=== PATIENT | male | born 1960 | race Two or more races ===

== ENCOUNTER 2018-08-11 10:25 | Inpatient (IN) | payer OTHER ==
[2018-08-11 11:40] VITALS: BMI 26.2
--- NOTE | 2018-08-11 12:10 | HP ---
CIWA Score Nausea/Vomitin Muscle Tremors: 2 Anxiety: 2 Agitation: 2 Paroxysmal Sweats: 1-Minimal Palms Moist Orientation: 0-Oriented Tacttile Disturbances: 1-Very Mild Itch/Numbness Auditory Disturbances: 1-Very Mild Visual Disturbances: 0-None Headache: 2-Mild CIWA-Ar Total Score: 13 - Admission Criteria [facility]ASAS Guidelines: Admission for Medically Managed Detox: Requires at least one of the followin. CIWA greater than 12 2. Seizures within the past 24 hours 3. Delirium tremens within the past 24 hours 4. Hallucinations within the past 24 hours 5. Acute intervention needed for co occurring medical disorder 6. Acute intervention needed for co occurring psychiatric disorder 7. Severe withdrawal that cannot be handled at a lower level of care (continued vomiting, continued diarrhea, abnormal vital signs) requiring intravenous medication and/or fluids 8. Patient presents the following: CIWA greater than 12 Admission Criteria Met: Admission criteria met Admission ROS S - HPI Chief Complaint: i need help to stop drinking alcohol,heroin abused,mmtp 60 mgs/day Allergies/Adverse Reactions: Allergies Allergy/AdvReac Type Severity Reaction Status Date / Time No Known Allergies Allergy Verified 08/11/18 12:05 History of Present Illness: this 58 years old male with alcohol dependence,heroin abused,mmtp 60 mgs/day, last medicated today, syncope alcohol related,last 08/10/18 hypertension on enalapril 20 mgs po daily last 08/11/18 type 2 dm diet control nicotine dependence weight loss multiple admissions in detox,last [place] 02/15 longest period of sobriety 3 years seen in [facility] this morning Exam Limitations: No Limitations - Ebola screening Have you been sick,other than usual withdrawal symptoms: No - Review of Systems Constitutional: Loss of Appetite, Malaise, Night Sweats, Changes in sleep, Weakness, Unintentional Wgt. Loss EENT: reports: Nose Congestion Respiratory: reports: No Symptoms reported Cardiac: reports: No Symptoms Reported GI: reports: Diarrhea, Nausea, Poor Appetite, Abdominal cramping : reports: No Symptoms Reported Musculoskeletal: reports: Back Pain, Muscle Pain Integumentary: reports: Dryness Neuro: reports: Headache, Tremors Endocrine: reports: No Symptoms Reported Hematology: reports: No Symptoms Reported Psychiatric: reports: No Sypmtoms Reported, Judgement Intact, Mood/Affect Appropiate, Orientated x3 Patient History - Patient Medical History Hx Anemia: No Hx Asthma: No Hx Chronic Obstructive Pulmonary Disease (COPD): No Hx Cancer: No Hx Cardiac Disorders: No Hx Congestive Heart Failure: No Hx Hypertension: Yes (on enalapril 20 mgs po daily) Hx Hypercholesterolemia: No Hx Pacemaker: No HX Cerebrovascular Accident: No Hx Seizures: No Hx Dementia: No Hx Diabetes: No Hx Gastrointestinal Disorders: No Hx Liver Disease: Yes (hepatitis c) Hx Genitourinary Disorders: No Hx Sexually Transmitted Disorders: No Hx Renal Disease (ESRD): No Hx Thyroid Disease: No Hx Human Immunodeficiency Virus (HIV): No (last 02/15 negative) Hx Hepatitis C: Yes (follow up with pmd in [facility]) Hx Depression: No Hx Suicide Attempt: No Hx Bipolar Disorder: No Hx Schizophrenia: No Other Medical History: no suicidal,no homicidal - Patient Surgical History Past Surgical History: No - PPD History Previous Implant?: Yes Documented Results: Positive w/o proof Implanted On Prior [facility] Admission?: No PPD to be Administered?: No - Smoking Cessation Smoking history: Current every day smoker Have you smoked in the past 12 months: Yes Aproximately how many cigarettes per day: 20 Cigars Per Day: 0 Hx Chewing Tobacco Use: No Initiated information on smoking cessation: Yes 'Breaking Loose' booklet given: 08/11/18 - Substance & Tx. History Hx Alcohol Use: Yes Hx Substance Use: No Substance Use Type: Alcohol Hx Substance Use Treatment: Yes ([facility] 02/15) - Substances Abused Alcohol Route: Oral Frequency: Daily Amount used: 3pints of vodka/2 of 12 ozs of beer Age of first use: 16 Date of Last Use: 08/11/18 Family Disease History - Family Disease History Family History: Denies Admission Physical Exam [facility] - Vital Signs Vital Signs: Vital Signs - 24 hr 08/11/18 11:29 Temperature 97.6 F Pulse Rate 67 Respiratory 18 Rate Blood Pressure 155/96 - Physical General Appearance: Yes: Moderate Distress, Tremorous, Irritable, Sweating, Anxious HEENTM: Yes: SHAHRIAR Tm's normal Respiratory: Yes: Lungs Clear, Normal Breath Sounds, No Respiratory Distress Neck: Yes: Within Normal Limits, Supple, Trachea in good position Breast: Yes: Within Normal Limits Cardiology: Yes: Within Normal Limits, Regular Rhythm, Regular Rate, S1, S2 Abdominal: Yes: Within Normal Limits, Normal Bowel Sounds, Non Tender, Flat, Soft Genitourinary: Yes: Within Normal Limits Back: Yes: Muscle Spasm Musculoskeletal: Yes: full range of Motion, Back pain, Muscle Pain Extremities: Yes: Tremors Neurological: Yes: credit collections clerk II-XII NML intact, Fully Oriented, Alert, Motor Strength 5/5 Integumentary: Yes: Dry Lymphatic: Yes: Within Normal Limits - Diagnostic (1) Alcohol dependence with uncomplicated withdrawal Current Visit: Yes Status: Acute (2) Alcohol dependence with uncomplicated intoxication Current Visit: Yes Status: Acute (3) Syncope Current Visit: Yes Status: Acute (4) Essential hypertension Current Visit: Yes Status: Acute (5) Weight loss Current Visit: Yes Status: Acute (6) DM2 (diabetes mellitus, type 2) Current Visit: Yes Status: Acute (7) Nicotine dependence Current Visit: Yes Status: Acute (8) Hepatitis C Current Visit: Yes Status: Acute (9) Methadone maintenance therapy patient Current Visit: Yes Status: Acute (10) Positive PPD, treated Current Visit: Yes Status: Acute Cleared for Admission [facility] - Detox or Rehab [facility] Level of Care: Medically Managed Detox Regimen/Protocol: Librium [facility] Breath Alcohol Content Breath Alcohol Content: 0.129 Urine Drug Screen - Results Drug Screen Negative: No Urine Drug Screen Results: OPI-Opiates, BZO-Benzodiazepines, MTD-Methadone, FEN- Fentanyl
[2018-08-11] MEDS ORDERED: ACETAMINOPHEN 325 MG TABLET (FP) PO PRN (12:25)
[2018-08-11] MEDS ORDERED: MAGNESIUM HYDROX 2400MG/30ML ORAL SUSPENSION 30 ML CUP PO PRN (12:25)
[2018-08-11] MEDS ORDERED: MENTHOL/PHENOL 1 EACH UD MM PRN (12:25)
[2018-08-11] MEDS ORDERED: hydrOXYzine PAMOATE 50 MG CAPSULE (FP) PO PRN (12:25)
[2018-08-11] MEDS ORDERED: LOPERAMIDE HCL 2 MG CAPSULE PO PRN (12:25)
[2018-08-11] MEDS ORDERED: P-EPHED 60MG/TRIPROLIDI 2.5MG TABLET PO PRN (12:25)
[2018-08-11] MEDS ORDERED: MAGNESIUM CITRATE 300 ML BOTTLE PO PRN (12:25)
[2018-08-11] MEDS ORDERED: IBUPROFEN 400 MG TABLET (FP) PO PRN (12:25)
[2018-08-11] MEDS ORDERED: MAG HYDROX/AL HYDROX/SIMETH 30 ML UNIT-DOSE CUP PO PRN (12:25)
[2018-08-11] MEDS ORDERED: guaiFENesin/D-METHORPHAN HB 10 ML UNIT-DOSE CUPS PO PRN (12:25)
[2018-08-11] MEDS: chlordiazePOXIDE HCL 25 MG CAPSULE PO PRN ×2 (14:12→19:19)
[2018-08-11] MEDS: NICOTINE 21 MG/24 HOURS TOPICAL PATCH TD SCH (15:39)
[2018-08-11] MEDS: chlordiazePOXIDE HCL 25 MG CAPSULE PO SCH ×2 (17:10→22:34)
[2018-08-11 18:58] LABS: URINE APPEARANCE CLEAR; URINE BILIRUBIN NEGATIVE (<2.0 mg/dL); URINE COLOR YELLOW; URINE GLUCOSE (UA) 1+ (NEGATIVE); URINE KETONE NEGATIVE (NEGATIVE); URINE LEUK ESTERASE NEGATIVE (NEGATIVE); URINE NITRITE NEGATIVE (NEGATIVE); URINE PROTEIN NEGATIVE (NEGATIVE); URINE UROBILINOGEN 4.0 E.U/dl mg/dL (0.2-1.0)
[2018-08-11] MEDS: THIAMINE HCL 100 MG TABLET (FP) PO SCH (22:34)
[2018-08-11] MEDS: MELATONIN 5 MG TABLETS PO PRN (22:35)
[2018-08-12] MEDS: chlordiazePOXIDE HCL 25 MG CAPSULE PO SCH ×4 (06:02→22:08)
[2018-08-12] MEDS ORDERED: cloNIDine HCL 0.1 MG TABLET PO ONE (07:28)
--- NOTE | 2018-08-12 07:31 | PN ---
S Progress Note Note: Patient's blood pressure is B/P 180/88. Patient is asymptomatic Vital Signs Temperature 97.2 F L 08/12/18 06:21 Pulse Rate 44 L 08/12/18 06:21 Respiratory Rate 16 08/12/18 06:21 Blood Pressure 180/88 H 08/12/18 06:21 O2 Sat by Pulse Oximetry (%) Action: Clonidine 0.1mg tablet oral ordered
--- NOTE | 2018-08-12 09:22 | PN ---
[facility] Progress Note Note: Vistaril prn dose cancelled in view of its prolongation of QT intervals. Will treat pt's symptoms if any
[2018-08-12] MEDS ORDERED: METHADONE HCL 10 MG TABLET PO SCH (09:30)
[2018-08-12] MEDS ORDERED: METHADONE HCL 40 MG DISPERSABLE TABLET ONE (09:40)
[2018-08-12] MEDS ORDERED: METHADONE HCL 10 MG TABLET ONE (09:41)
[2018-08-12] MEDS: METHADONE 40 MG, METHADONE 20 MG PO SCH (10:16)
[2018-08-12] MEDS: PRENATAL VITAMINS W/ FOLIC ACID TABLET (FP) PO SCH (10:16)
[2018-08-12] MEDS: NICOTINE 21 MG/24 HOURS TOPICAL PATCH TD SCH (10:16)
[2018-08-12 10:22] LABS: HEMATOCRIT 39.5 % (35.4-49); HEMOGLOBIN 12.8 GM/dL (11.7-16.9); MCH 30.3 pg (25.7-33.7); MCHC 32.4 g/dl (32.0-35.9); MEAN CELL VOLUME 93.4 fl (80-96); MEAN PLT VOLUME 10.6 fl (7.5-11.1); PLATELET COUNT 126 K/MM3 (134-434); RBC 4.23 M/mm3 (4.00-5.60); RDW 14.8 % (11.9-15.9); WHITE BLOOD COUNT 3.5 K/mm3 (4.0-10.0)
[2018-08-12 10:40] LABS: ALBUMIN 3.6 g/dl (3.4-5.0); ALK PHOS 93 U/L (45-117); ANION GAP 7 MMOL/L (8-16); BILIRUBIN,TOTAL 0.8 mg/dL (0.2-1); BLOOD UREA NITROGEN 16 mg/dL (7-18); CALCIUM 8.8 mg/dL (8.5-10.1); CHLORIDE 100 mmol/L (98-107); CO2 31 mmol/L (21-32); CREATININE 0.9 mg/dL (0.55-1.3); GLUCOSE,RANDOM 106 mg/dL (74-106); POTASSIUM 4.1 mmol/L (3.5-5.1); SGOT/AST 100 U/L (15-37); SGPT/ALT 82 U/L (13-61); SODIUM 139 mmol/L (136-145)
--- NOTE | 2018-08-12 10:51 | EKG ---
Test Reason : Blood Pressure : / mmHG Vent. Rate : 063 BPM Atrial Rate : 063 BPM P-R Int : 156 ms QRS Dur : 094 ms QT Int : 480 ms P-R-T Axes : 077 056 054 degrees QTc Int : 491 ms SINUS RHYTHM WITH MARKED SINUS ARRHYTHMIA MINIMAL VOLTAGE CRITERIA FOR LVH, MAY BE NORMAL VARIANT PROLONGED QT ABNORMAL ECG NO PREVIOUS ECGS AVAILABLE Confirmed by DENNY HAHN MD ([id number]) on 08/12/2018 10:51:25 AM Referred By: Tania Nair Confirmed By:DENNY HAHN MD
--- NOTE | 2018-08-12 18:41 | PN ---
[facility] CIWA - CIWA Score Nausea/Vomitin Muscle Tremors: 3 Anxiety: 3 Agitation: 2 Paroxysmal Sweats: 3 Orientation: 0-Oriented Tacttile Disturbances: 0-None Auditory Disturbances: 0-None Visual Disturbances: 0-None Headache: 0-None Present CIWA-Ar Total Score: 13 S Progress Note (SOAP) Subjective: shakes diarrhea sweats Objective: 08/12/18 18:38 A & o x 3 Ambulating easily on unit in no distress Vital Signs Temperature 97.1 F L 08/12/18 18:09 Pulse Rate 66 08/12/18 18:09 Respiratory Rate 18 08/12/18 18:09 Blood Pressure 122/89 08/12/18 18:09 O2 Sat by Pulse Oximetry (%) Laboratory Last Values WBC 3.5 K/mm3 (4.0-10.0) L 08/12/18 07:00 RBC 4.23 M/mm3 (4.00-5.60) 08/12/18 07:00 Hgb 12.8 GM/dL (11.7-16.9) 08/12/18 07:00 Hct 39.5 % (35.4-49) 08/12/18 07:00 MCV 93.4 fl (80-96) 08/12/18 07:00 MCH 30.3 pg (25.7-33.7) 08/12/18 07:00 MCHC 32.4 g/dl (32.0-35.9) 08/12/18 07:00 RDW 14.8 % (11.9-15.9) 08/12/18 07:00 Plt Count 126 K/MM3 (134-434) L 08/12/18 07:00 MPV 10.6 fl (7.5-11.1) 08/12/18 07:00 Sodium 139 mmol/L (136-145) 08/12/18 07:00 Potassium 4.1 mmol/L (3.5-5.1) 08/12/18 07:00 Chloride 100 mmol/L (98-107) 08/12/18 07:00 Carbon Dioxide 31 mmol/L (21-32) 08/12/18 07:00 Anion Gap 7 MMOL/L (8-16) L 08/12/18 07:00 BUN 16 mg/dL (7-18) 08/12/18 07:00 Creatinine 0.9 mg/dL (0.55-1.3) 08/12/18 07:00 Creat Clearance w eGFR > 60 (>60) 08/12/18 07:00 POC Glucometer 115 UNITS (80-120) 08/12/18 06:01 Random Glucose 106 mg/dL (74-106) 08/12/18 07:00 Calcium 8.8 mg/dL (8.5-10.1) 08/12/18 07:00 Total Bilirubin 0.8 mg/dL (0.2-1) 08/12/18 07:00 AST 100 U/L (15-37) H 08/12/18 07:00 ALT 82 U/L (13-61) H 08/12/18 07:00 Alkaline Phosphatase 93 U/L (45-117) 08/12/18 07:00 Total Protein 8.0 g/dl (6.4-8.2) 08/12/18 07:00 Albumin 3.6 g/dl (3.4-5.0) 08/12/18 07:00 Urine Color Yellow 08/11/18 18:55 Urine Appearance Clear 08/11/18 18:55 Urine pH 7.0 (5.0-8.0) 08/11/18 18:55 Ur Specific [place] 1.016 (1.010-1.035) 08/11/18 18:55 Urine Protein Negative (NEGATIVE) 08/11/18 18:55 Urine Glucose (UA) 1+ (NEGATIVE) H 08/11/18 18:55 Urine Ketones Negative (NEGATIVE) 08/11/18 18:55 Urine Blood Negative (NEGATIVE) 08/11/18 18:55 Urine Nitrite Negative (NEGATIVE) 08/11/18 18:55 Urine Bilirubin Negative (<2.0 mg/dL) 08/11/18 18:55 Urine Urobilinogen 4.0 e.u/dl mg/dL (0.2-1.0) 08/11/18 18:55 Ur Leukocyte Esterase Negative (NEGATIVE) 08/11/18 18:55 RPR Titer Nonreactive (NONREACTIVE) 08/12/18 07:00 Labs noted, Plt count low Assessment: 08/12/18 18:40 withdrawal sxs thrombocytopenia Plan: continue detox Careful with shaving to avoid increased risk of bleeding
[2018-08-12] MEDS: THIAMINE HCL 100 MG TABLET (FP) PO SCH (22:08)
[2018-08-12] MEDS: MELATONIN 5 MG TABLETS PO PRN (22:08)
[2018-08-13] MEDS ORDERED: METHADONE HCL 40 MG DISPERSABLE TABLET ONE (04:47)
[2018-08-13] MEDS ORDERED: METHADONE HCL 10 MG TABLET ONE (04:48)
[2018-08-13] MEDS: METHADONE 40 MG, METHADONE 20 MG PO SCH (05:28)
[2018-08-13] MEDS: chlordiazePOXIDE HCL 25 MG CAPSULE PO SCH ×2 (05:30→10:37)
[2018-08-13] MEDS: NICOTINE 21 MG/24 HOURS TOPICAL PATCH TD SCH (10:37)
[2018-08-13] MEDS: PRENATAL VITAMINS W/ FOLIC ACID TABLET (FP) PO SCH (10:37)
--- NOTE | 2018-08-13 11:29 | PN ---
S CIWA - CIWA Score Nausea/Vomitin-No Nausea/No Vomiting Muscle Tremors: 3 Anxiety: 3 Agitation: 3 Paroxysmal Sweats: No Perspiration Orientation: 0-Oriented Tacttile Disturbances: 0-None Auditory Disturbances: 0-None Visual Disturbances: 0-None Headache: 0-None Present CIWA-Ar Total Score: 9 [facility] Progress Note (SOAP) Subjective: PATIENT C/O SHAKES, CHILLS, ANXIETY/RESTLESSNESS. Objective: 08/13/18 11:27 Vital Signs Temperature 96.9 F L 08/13/18 09:12 Pulse Rate 63 08/13/18 09:12 Respiratory Rate 18 08/13/18 09:12 Blood Pressure 125/77 08/13/18 09:12 O2 Sat by Pulse Oximetry (%) Laboratory Tests 08/11/18 08/12/18 08/12/18 18:55 06:01 07:00 WBC 3.5 L RBC 4.23 Hgb 12.8 Hct 39.5 MCV 93.4 MCH 30.3 MCHC 32.4 RDW 14.8 Plt Count 126 L MPV 10.6 Sodium Potassium Chloride Carbon Dioxide Anion Gap BUN Creatinine Creat Clearance w eGFR POC Glucometer 115 Random Glucose Calcium Total Bilirubin AST ALT Alkaline Phosphatase Total Protein Albumin Urine Color Yellow Urine Appearance Clear Urine pH 7.0 Ur Specific [place] 1.016 Urine Protein Negative Urine Glucose (UA) 1+ H Urine Ketones Negative Urine Blood Negative Urine Nitrite Negative Urine Bilirubin Negative Urine Urobilinogen 4.0 e.u/dl Ur Leukocyte Esterase Negative RPR Titer 08/12/18 08/12/18 08/13/18 07:00 07:00 05:29 WBC RBC Hgb Hct MCV MCH MCHC RDW Plt Count MPV Sodium 139 Potassium 4.1 Chloride 100 Carbon Dioxide 31 Anion Gap 7 L BUN 16 Creatinine 0.9 Creat Clearance w eGFR > 60 POC Glucometer 107 Random Glucose 106 Calcium 8.8 Total Bilirubin 0.8 AST 100 H ALT 82 H Alkaline Phosphatase 93 Total Protein 8.0 Albumin 3.6 Urine Color Urine Appearance Urine pH Ur Specific [place] Urine Protein Urine Glucose (UA) Urine Ketones Urine Blood Urine Nitrite Urine Bilirubin Urine Urobilinogen Ur Leukocyte Esterase RPR Titer Nonreactive PE: ALERT AND ORIENTED X 3 SKIN WARM AND DRY CAR S1S2 RESP CTA BL EXT +TREMORS, FULL ROM, AMB AD YUSUF Assessment: 08/13/18 11:28 WITHDRAWAL SX Plan: CONTINUE DETOX ENCOURAGE ORAL FLUIDS PSYCH CONSULT CONTINUE TO MONITOR
[2018-08-13] MEDS: chlordiazePOXIDE 5 MG CAPSULE PO SCH ×2 (17:23→22:10)
[2018-08-13] MEDS: MELATONIN 5 MG TABLETS PO PRN (22:10)
[2018-08-13] MEDS: THIAMINE HCL 100 MG TABLET (FP) PO SCH (22:10)
[2018-08-14] MEDS ORDERED: METHADONE HCL 40 MG DISPERSABLE TABLET ONE (04:58)
[2018-08-14] MEDS ORDERED: METHADONE HCL 10 MG TABLET ONE (04:59)
[2018-08-14] MEDS: METHADONE 40 MG, METHADONE 20 MG PO SCH (05:28)
[2018-08-14] MEDS: chlordiazePOXIDE 5 MG CAPSULE PO SCH ×2 (05:28→10:51)
[2018-08-14] MEDS: PRENATAL VITAMINS W/ FOLIC ACID TABLET (FP) PO SCH (10:50)
[2018-08-14] MEDS: NICOTINE 21 MG/24 HOURS TOPICAL PATCH TD SCH (10:51)
--- NOTE | 2018-08-14 11:24 | PN ---
[facility] Progress Note Note: PATIENT CONTINUES WITH DETOX REGIMEN. PATIENT STATES HE FEELS BETTER. C/O INTERRUPTED SLEEP. Vital Signs Temperature 97.0 F L 08/14/18 09:28 Pulse Rate 45 L 08/14/18 09:28 Respiratory Rate 16 08/14/18 09:28 Blood Pressure 140/79 08/14/18 09:28 O2 Sat by Pulse Oximetry (%) Laboratory Tests 08/11/18 08/12/18 08/12/18 18:55 06:01 07:00 WBC 3.5 L RBC 4.23 Hgb 12.8 Hct 39.5 MCV 93.4 MCH 30.3 MCHC 32.4 RDW 14.8 Plt Count 126 L MPV 10.6 Sodium Potassium Chloride Carbon Dioxide Anion Gap BUN Creatinine Creat Clearance w eGFR POC Glucometer 115 Random Glucose Calcium Total Bilirubin AST ALT Alkaline Phosphatase Total Protein Albumin Urine Color Yellow Urine Appearance Clear Urine pH 7.0 Ur Specific [place] 1.016 Urine Protein Negative Urine Glucose (UA) 1+ H Urine Ketones Negative Urine Blood Negative Urine Nitrite Negative Urine Bilirubin Negative Urine Urobilinogen 4.0 e.u/dl Ur Leukocyte Esterase Negative RPR Titer 08/12/18 08/12/18 08/13/18 07:00 07:00 05:29 WBC RBC Hgb Hct MCV MCH MCHC RDW Plt Count MPV Sodium 139 Potassium 4.1 Chloride 100 Carbon Dioxide 31 Anion Gap 7 L BUN 16 Creatinine 0.9 Creat Clearance w eGFR > 60 POC Glucometer 107 Random Glucose 106 Calcium 8.8 Total Bilirubin 0.8 AST 100 H ALT 82 H Alkaline Phosphatase 93 Total Protein 8.0 Albumin 3.6 Urine Color Urine Appearance Urine pH Ur Specific [place] Urine Protein Urine Glucose (UA) Urine Ketones Urine Blood Urine Nitrite Urine Bilirubin Urine Urobilinogen Ur Leukocyte Esterase RPR Titer Nonreactive 08/14/18 05:30 WBC RBC Hgb Hct MCV MCH MCHC RDW Plt Count MPV Sodium Potassium Chloride Carbon Dioxide Anion Gap BUN Creatinine Creat Clearance w eGFR POC Glucometer 152 Random Glucose Calcium Total Bilirubin AST ALT Alkaline Phosphatase Total Protein Albumin Urine Color Urine Appearance Urine pH Ur Specific [place] Urine Protein Urine Glucose (UA) Urine Ketones Urine Blood Urine Nitrite Urine Bilirubin Urine Urobilinogen Ur Leukocyte Esterase RPR Titer PE: ALERT AND ORIENTED X 3 SKIN WARM AND DRY CAR S1S2 RESP CTA BL EXT FULL ROM, NO TREMORS AMB AD YUSUF
--- NOTE | 2018-08-14 13:01 | CONSULT ---
[facility] Psychiatric Consult - Data Date of interview: 08/14/18 Admission source: [facility] Identifying data: First admission to [facility] for this 58 y/o [place] male seeking detoxification treatment on for alcohol and heroin dependence. Patient is single without dependents, domiciled, unemployed and supported on undisclosed means. Substance Abuse History: Confirmed by patient in this interview. Details in current [facility] report : Smoking history: Current every day smoker. Have you smoked in the past 12 months: Yes. Aproximately how many cigarettes per day: 20. Cigars Per Day: 0. Hx Chewing Tobacco Use: No. Initiated information on smoking cessation: Yes. 'Breaking Loose' booklet given: 08/11/18. - Substance & Tx. History. Hx Alcohol Use: Yes. Hx Substance Use: No. Substance Use Type : Alcohol. Hx Substance Use Treatment: Yes ([facility] 02/15). - Substances Abused. Alcohol. Route: Oral. Frequency: Daily. Amount used: 3pints of vodka/2 of 12 ozs of beer. Age of first use: 16. Date of Last Use: 08/11/18 Medical History: Hypertension, hepatitis C and diabetes mellitus. Psychiatric History: No reported history of psychiatric illness. Patient reports that he has been diagnosed with MDD and Anxiety Disorder. Used to be on aripriprazole (discontinued due to oversedation) during his incarceration. Mr Reynolds is currently on methadone maintenance (60 mg/day) at the [facility] program in [facility]. No history of suicide attempts. Physical/Sexual Abuse/Trauma History: Patient denies. Additional Comment: Urine Drug Screen Results: OPI-Opiates, BZO-Benzodiazepines , MTD-Methadone, FEN-Fentanyl. Noted. Mental Status Exam - Mental Status Exam Alert and Oriented to: Time, Place, Person Cognitive Function: Good Patient Appearance: Well Groomed Mood: Nervous, Withdrawn Affect: Appropriate, Normal Range Patient Behavior: Fatigued, Appropriate, Cooperative Speech Pattern: Clear, Appropriate Voice Loudness: Normal Thought Process: Intact, Goal Oriented Thought Disorder: Not Present Hallucinations: Denies Suicidal Ideation: Denies Homicidal Ideation: Denies Insight/Judgement: Poor Sleep: Well Appetite: Good Muscle strength/Tone: Normal Gait/Station: Normal Psychiatric Findings - Problem List (Brothers 1, 2,3) (1) Opioid dependence on agonist therapy Current Visit: Yes Status: Acute (2) Alcohol dependence with uncomplicated withdrawal Current Visit: Yes Status: Acute (3) Nicotine dependence Current Visit: Yes Status: Acute - Initial Treatment Plan Initial Treatment Plan: Psychoeducation. Sleep hygiene. Detoxification. AA/NA meetings. Psychotherapy (group + supportive). Motivational rounds. Observation.
[2018-08-14] MEDS: chlordiazePOXIDE HCL 10 MG CAPSULE PO SCH ×2 (17:26→22:05)
[2018-08-14] MEDS: THIAMINE HCL 100 MG TABLET (FP) PO SCH (22:04)
[2018-08-14] MEDS: MELATONIN 5 MG TABLETS PO PRN (22:05)
[2018-08-15] MEDS ORDERED: METHADONE HCL 40 MG DISPERSABLE TABLET ONE (04:56)
[2018-08-15] MEDS ORDERED: METHADONE HCL 10 MG TABLET ONE (04:56)
[2018-08-15] MEDS: chlordiazePOXIDE HCL 10 MG CAPSULE PO SCH (05:31)
[2018-08-15] MEDS: METHADONE 40 MG, METHADONE 20 MG PO SCH (05:31)
[2018-08-15 06:30] VITALS: BP 160/83; PULSE 50; TEMP 97.1
[2018-08-15] MEDS: PRENATAL VITAMINS W/ FOLIC ACID TABLET (FP) PO SCH (09:30)
[2018-08-15] MEDS: NICOTINE 21 MG/24 HOURS TOPICAL PATCH TD SCH (09:30)
--- NOTE | 2018-08-15 10:40 | DS ---
[facility] Detox Discharge Summary Admission Date: 08/11/18 Discharge Date: 08/15/18 - History Present History: Alcohol Dependence, MMTP - Physical Exam Results Vital Signs: Vital Signs Temperature 97.1 F L 08/15/18 06:29 Pulse Rate 50 L 08/15/18 06:29 Respiratory Rate 18 08/15/18 06:29 Blood Pressure 160/83 08/15/18 06:29 O2 Sat by Pulse Oximetry (%) Pertinent Admission Physical Exam Findings: PATIENT COMPLETED DETOX WITHOUT ADVERSE EVENT. PATIENT DISCHARGE CLINICALLY STABLE, DENIES SI/HI. PATIENT ALERT AND ORIENTED X 3, EXT FULL ROM, AMB AD YUSUF. PATIENT ENCOURAGED TO ATTEND GROUP MEETINGS TO PREVENT RELAPSE AND TO SEEK MEDICAL ATTENTION IF WITHDRAWAL SYMPTOMS OCCUR. D/C INSTRUCTIONS PROVIDED TO PATIENT BY STAFF. - Treatment Hospital Course: Detox Protocol Followed, Detoxed Safely, Responded well, Discharged Condition Good - Medication Discharge Medications: Ambulatory Orders NK [No Known Home Medication] 08/11/18 - Diagnosis (1) Alcohol dependence with uncomplicated withdrawal Status: Resolved - AMA Did Patient Leave Against Medical Advice: No
== END 2018-08-15 09:15 | disposition home or self-care (01) | DRG 773 ==
LOC: YASAS 10:25 → Y3N 13:27
PROC: HZ2ZZZZ Detoxification Services for Substance Abuse Treatment (ICD-10-PCS; principal; 2018-08-11)
DX: F10.230 Alcohol dependence with withdrawal, uncomplicated (principal); F11.20 Opioid dependence, uncomplicated; F17.210 Nicotine dependence, cigarettes, uncomplicated; I10 Essential (primary) hypertension; E11.9 Type 2 diabetes mellitus without complications; R55 Syncope and collapse; B18.2 Chronic viral hepatitis C; R76.11 Nonspecific reaction to tuberculin skin test without active tuberculosis; R63.4 Abnormal weight loss; Z68.26 Body mass index [BMI] 26.0-26.9, adult
CPT/HCPCS: 36415; 71046-TC-FY; 80053; 81003; 82962; 85027; 86593; 93005; 93010; J0735

== ENCOUNTER 2019-09-22 10:06 | Inpatient (IN) | payer OTHER ==
[2019-09-22 11:45] VITALS: BMI 31.6
--- NOTE | 2019-09-22 12:15 | HP ---
CIWA Score Nausea/Vomitin Muscle Tremors: 6 Anxiety: 3 Agitation: 3 Paroxysmal Sweats: 3 Orientation: 3-Disoriented Date>2 days Tacttile Disturbances: 0-None Auditory Disturbances: 0-None Visual Disturbances: 0-None Headache: 2-Mild CIWA-Ar Total Score: 23 - Admission Criteria OASAS Guidelines: Admission for Medically Managed Detox: Requires at least one of the followin. CIWA greater than 12 2. Seizures within the past 24 hours 3. Delirium tremens within the past 24 hours 4. Hallucinations within the past 24 hours 5. Acute intervention needed for co occurring medical disorder 6. Acute intervention needed for co occurring psychiatric disorder 7. Severe withdrawal that cannot be handled at a lower level of care (continued vomiting, continued diarrhea, abnormal vital signs) requiring intravenous medication and/or fluids 8. Admitting History and Physical - Admission Chief Complaint: " I want to get straight again." History of Present Illness: 59 male with history of opioid dependence on methadone program in [facility]. He is on methadone 60 mg daily. He is using 1 pint of vodka daily, last used this morning. He does use heroin 3 -4 days ago out of habit but with no effect. He smokes 1/2 PPD since 17 years old , cessation in the past . His last detox was 08/2018 completed detox and remained abstinent for one year. 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 History Source: Patient Limitations to Obtaining History: No Limitations - Past Medical History Cardiovascular: Yes: HTN Infectious Disease: Yes: Other (HCV without treatment) - Smoking History Smoking history: Current every day smoker Have you smoked in the past 12 months: Yes Aproximately how many cigarettes per day: 20 - Alcohol/Substance Use Hx Alcohol Use: Yes Admission [facility] Allergies/Adverse Reactions: Allergies Allergy/AdvReac Type Severity Reaction Status Date / Time No Known Allergies Allergy Verified 09/22/19 11:46 - Ebola screening Have you traveled outside of the country in the last 21 days: No Have you had contact with anyone from an Ebola affected area: No Have you been sick,other than usual withdrawal symptoms: No Do you have a fever: No - Review of Systems Constitutional: Diaphoresis, Unintentional Wgt. Loss EENT: reports: No Symptoms Reported Respiratory: reports: No Symptoms reported Cardiac: reports: No Symptoms Reported GI: reports: Nausea, Abdominal cramping : reports: No Symptoms Reported Musculoskeletal: reports: No Symptoms Reported Integumentary: reports: No Symptoms Reported Neuro: reports: Headache Endocrine: reports: No Symptoms Reported Hematology: reports: No Symptoms Reported Psychiatric: reports: Judgement Intact, Mood/Affect Appropiate, Orientated x3 Other Systems: Reviewed and Negative Patient History - Patient Medical History Hx Anemia: No Hx Asthma: No Hx Chronic Obstructive Pulmonary Disease (COPD): No Hx Cancer: No Hx Cardiac Disorders: No Hx Congestive Heart Failure: No Hx Hypertension: Yes (on enalapril 20 mgs po daily) Hx Hypercholesterolemia: No Hx Pacemaker: No HX Cerebrovascular Accident: No Hx Seizures: No Hx Dementia: No Hx Diabetes: No Hx Gastrointestinal Disorders: No Hx Liver Disease: Yes (hepatitis c) Hx Genitourinary Disorders: No Hx Sexually Transmitted Disorders: No Hx Renal Disease (ESRD): No Hx Thyroid Disease: No Hx Human Immunodeficiency Virus (HIV): No (last 02/15 negative) Hx Hepatitis C: Yes (follow up with [facility]) Hx Depression: No Hx Suicide Attempt: No Hx Bipolar Disorder: No Hx Schizophrenia: No - Patient Surgical History Past Surgical History: No - PPD History Previous Implant?: No Documented Results: Positive w/o proof Implanted On Prior [facility] Admission?: No Results: positive PPD to be Administered?: No - Smoking Cessation Smoking history: Current every day smoker Have you smoked in the past 12 months: Yes Aproximately how many cigarettes per day: 20 Cigars Per Day: 0 Hx Chewing Tobacco Use: No Initiated information on smoking cessation: Yes 'Breaking Loose' booklet given: 09/22/19 - Substances abused Alcohol Substance route: Oral Frequency: Daily Amount used: 2 - 3pints / day Age of first use: 16 Date of last use: 09/22/19 Heroin Substance route: Inhalation Frequency: 1-2 times per week Amount used: 1 or 2 bags Age of first use: 21 Date of last use: 09/19/19 Admission Physical Exam [facility] - Vital Signs Vital Signs: Vital Signs - 24 hr 09/22/19 11:30 Temperature 98.5 F Pulse Rate 68 Respiratory 18 Rate Blood Pressure 163/92 - Physical General Appearance: Yes: Alcohol on Breath, Intoxicated, Tremorous, Irritable, Sweating, Anxious HEENTM: Yes: EOMI, Hearing grossly Normal, Normal ENT Inspection, Normocephalic , Normal Voice, SHAHRIAR, Pharynx Normal, Tm's normal Respiratory: Yes: Chest Non-Tender, Lungs Clear, Normal Breath Sounds, No Respiratory Distress, No Accessory Muscle Use Neck: Yes: No masses,lesions,Nodules, Supple, Trachea in good position Breast: Yes: Within Normal Limits Cardiology: Yes: Regular Rhythm, Regular Rate, S1, S2 Abdominal: Yes: Normal Bowel Sounds, Non Tender, Flat, Soft Genitourinary: Yes: Within Normal Limits Back: Yes: Normal Inspection Musculoskeletal: Yes: full range of Motion, Gait Steady, Pelvis Stable Extremities: Yes: Normal Capillary Refill, Normal Inspection, Normal Range of Motion, Non-Tender Neurological: Yes: 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 NML intact, Fully Oriented, Alert, Motor Strength 5/5, Normal Mood/Affect Integumentary: Yes: Normal Color, Warm Lymphatic: Yes: Within Normal Limits - Diagnostic (1) Alcohol dependence with uncomplicated intoxication Current Visit: Yes Status: Acute (2) Essential hypertension Current Visit: Yes Status: Acute (3) Hepatitis C Current Visit: Yes Status: Acute (4) Methadone maintenance therapy patient Current Visit: Yes Status: Acute (5) Nicotine dependence Current Visit: Yes Status: Acute (6) Positive PPD, treated Current Visit: Yes Status: Acute Cleared for Admission S - Detox or Rehab [facility] Level of Care: Medically Managed Detox Regimen/Protocol: Librium Claeared for Rehab Admission: No Screened but not Admitted - Documentation of Visit Screened but not Admitted: No Breathalyzer - Breathalyzer Breathalyzer: 0.061 Urine Drug Screen - Test Device Lot number: [id number] Expiration date: 04/30/21 - Control Is test valid?: Yes - Results Drug screen NEGATIVE: No Urine drug screen results: MTD-Methadone, BZO-Benzodiazepines Inpatient Rehab Admission - Rehab Decision to Admit Inpatient rehab admission?: No
[2019-09-22] MEDS ORDERED: MAGNESIUM CITRATE 300 ML BOTTLE PO PRN (12:21)
[2019-09-22] MEDS ORDERED: BISMUTH SUBSALICYLATE 524 MG/30 ML UD PO PRN (12:21)
[2019-09-22] MEDS ORDERED: MENTHOL/PHENOL 1 EACH UD MM PRN (12:21)
[2019-09-22] MEDS ORDERED: ACETAMINOPHEN 325 MG TABLET (FP) PO PRN ×2 (12:21)
[2019-09-22] MEDS ORDERED: IBUPROFEN 400 MG TABLET (FP) PO PRN (12:21)
[2019-09-22] MEDS ORDERED: MAG HYDROX/AL HYDROX/SIMETH 30 ML UNIT-DOSE CUP PO PRN (12:21)
[2019-09-22] MEDS ORDERED: MAGNESIUM HYDROX 2400MG/30ML ORAL SUSPENSION 30 ML CUP PO PRN (12:21)
[2019-09-22] MEDS ORDERED: hydrOXYzine PAMOATE 25 MG CAPSULE (FP) PO PRN (12:21)
[2019-09-22] MEDS ORDERED: chlordiazePOXIDE HCL 25 MG CAPSULE PO PRN (12:21)
[2019-09-22] MEDS ORDERED: METHADONE HCL 10 MG TABLET PO ONE (13:24)
[2019-09-22] MEDS: chlordiazePOXIDE HCL 25 MG CAPSULE PO SCH ×3 (13:50→22:19)
[2019-09-22] MEDS: METHOCARBAMOL 500 MG TABLET PO PRN (13:52)
[2019-09-22 16:49] LABS: HEMATOCRIT 37.8 % (35.4-49); HEMOGLOBIN 12.3 GM/dL (11.7-16.9); MCH 30.7 pg (25.7-33.7); MCHC 32.6 g/dl (32.0-35.9); MEAN CELL VOLUME 94.3 fl (80-96); MEAN PLT VOLUME 10.8 fl (7.5-11.1); PLATELET COUNT 92 K/MM3 (134-434); RBC 4.01 M/mm3 (4.00-5.60); RDW 15.2 % (11.9-15.9); WHITE BLOOD COUNT 3.9 K/mm3 (4.0-10.0)
[2019-09-22 16:56] LABS: ALBUMIN 3.5 g/dl (3.4-5.0); BILIRUBIN,TOTAL 1.2 mg/dL (0.2-1); BLOOD UREA NITROGEN 10.3 mg/dL (7-18); CALCIUM 8.6 mg/dL (8.5-10.1); CREATININE 0.9 mg/dL (0.55-1.3); TOT PROT 8.4 g/dl (6.4-8.2)
[2019-09-22] MEDS ORDERED: cloNIDine HCL 0.1 MG TABLET PO ONE (20:45)
[2019-09-22] MEDS: THIAMINE HCL 100 MG TABLET (FP) PO SCH (22:19)
[2019-09-23] MEDS ORDERED: METHADONE HCL 10 MG TABLET ONE (04:02)
[2019-09-23] MEDS ORDERED: METHADONE HCL 40 MG DISPERSABLE TABLET ONE (04:02)
[2019-09-23] MEDS: METHADONE 40 MG, METHADONE 20 MG PO SCH (05:55)
[2019-09-23] MEDS: chlordiazePOXIDE HCL 25 MG CAPSULE PO SCH ×4 (05:55→22:13)
[2019-09-23] MEDS ORDERED: ONDANSETRON *ODT* 4 MG TABLET SL PRN (09:49)
--- NOTE | 2019-09-23 09:49 | PN ---
S CIWA - CIWA Score Nausea/Vomitin-No Nausea/No Vomiting Muscle Tremors: 3 Anxiety: 3 Agitation: 3 Paroxysmal Sweats: 3 Orientation: 0-Oriented Tacttile Disturbances: 0-None Auditory Disturbances: 0-None Visual Disturbances: 0-None Headache: 0-None Present CIWA-Ar Total Score: 12 BHS Progress Note (SOAP) Subjective: nausea sweats chills body aches interrupted sleep Objective: 09/23/19 09:48 Vital Signs Temperature 98.2 F 09/23/19 09:28 Pulse Rate 60 09/23/19 09:28 Respiratory Rate 20 09/23/19 09:28 Blood Pressure 153/103 H 09/23/19 09:28 O2 Sat by Pulse Oximetry (%) Laboratory Tests 09/22/19 09/22/19 12:30 12:30 WBC 3.9 L RBC 4.01 Hgb 12.3 Hct 37.8 MCV 94.3 MCH 30.7 MCHC 32.6 RDW 15.2 Plt Count 92 L D MPV 10.8 Sodium 140 Potassium 4.0 Chloride 104 Carbon Dioxide 28 Anion Gap 8 BUN 10.3 Creatinine 0.9 Est GFR (CKD-EPI)AfAm 106.46 Est GFR (CKD-EPI)NonAf 91.86 Random Glucose 134 H Calcium 8.6 Total Bilirubin 1.2 H AST 256 H ALT 113 H Alkaline Phosphatase 123 H Total Protein 8.4 H Albumin 3.5 labs noted elevated liver enzymes d/c tylenol repeat labs ordered elevated BP; HTCZ 12.5mg ordered; continue to monitor. Assessment: 09/23/19 09:48 withdrawals Plan: continue detox monitor bp repeat labs zofran sl prn ensure bid as per pt request
[2019-09-23] MEDS: PRENATAL VITAMINS W/ FOLIC ACID TABLET (FP) PO SCH (10:00)
[2019-09-23] MEDS: LISINOPRIL 20 MG TABLET (FP) PO SCH (10:00)
[2019-09-23] MEDS: HYDROCHLOROTHIAZIDE 12.5 MG CAPSULE (FP) PO SCH (10:00)
[2019-09-23] MEDS: NICOTINE 14 MG/24 HOURS TOPICAL PATCH TD SCH (10:00)
[2019-09-23] MEDS: THIAMINE HCL 100 MG TABLET (FP) PO SCH (22:13)
[2019-09-23] MEDS: MELATONIN 5 MG TABLETS PO PRN (22:13)
[2019-09-24] MEDS ORDERED: METHADONE HCL 10 MG TABLET ONE (04:47)
[2019-09-24] MEDS ORDERED: METHADONE HCL 40 MG DISPERSABLE TABLET ONE (04:48)
[2019-09-24] MEDS: METHADONE 40 MG, METHADONE 20 MG PO SCH (05:33)
[2019-09-24] MEDS: chlordiazePOXIDE HCL 25 MG CAPSULE PO SCH ×4 (05:33→22:45)
[2019-09-24] MEDS: HYDROCHLOROTHIAZIDE 12.5 MG CAPSULE (FP) PO SCH (10:19)
[2019-09-24] MEDS: PRENATAL VITAMINS W/ FOLIC ACID TABLET (FP) PO SCH (10:19)
[2019-09-24] MEDS: LISINOPRIL 20 MG TABLET (FP) PO SCH (10:20)
[2019-09-24] MEDS: NICOTINE 14 MG/24 HOURS TOPICAL PATCH TD SCH (10:20)
--- NOTE | 2019-09-24 11:48 | PN ---
[facility] CIWA - CIWA Score Nausea/Vomitin-No Nausea/No Vomiting Muscle Tremors: 3 Anxiety: 2 Agitation: 3 Paroxysmal Sweats: 2 Orientation: 0-Oriented Tacttile Disturbances: 0-None Auditory Disturbances: 0-None Visual Disturbances: 0-None Headache: 0-None Present CIWA-Ar Total Score: 10 S Progress Note (SOAP) Subjective: anxiety sweats Objective: 09/24/19 11:46 Vital Signs Temperature 98.1 F 09/24/19 09:21 Pulse Rate 61 09/24/19 09:21 Respiratory Rate 18 09/24/19 09:21 Blood Pressure 138/82 09/24/19 09:21 O2 Sat by Pulse Oximetry (%) Laboratory Tests 09/22/19 09/22/19 09/22/19 12:30 12:30 12:30 WBC 3.9 L RBC 4.01 Hgb 12.3 Hct 37.8 MCV 94.3 MCH 30.7 MCHC 32.6 RDW 15.2 Plt Count 92 L D MPV 10.8 Sodium 140 Potassium 4.0 Chloride 104 Carbon Dioxide 28 Anion Gap 8 BUN 10.3 Creatinine 0.9 Est GFR (CKD-EPI)AfAm 106.46 Est GFR (CKD-EPI)NonAf 91.86 Random Glucose 134 H Calcium 8.6 Total Bilirubin 1.2 H AST 256 H ALT 113 H Alkaline Phosphatase 123 H Total Protein 8.4 H Albumin 3.5 RPR Titer Nonreactive HIV 1&2 Antibody Screen HIV P24 Antigen 09/22/19 12:50 WBC RBC Hgb Hct MCV MCH MCHC RDW Plt Count MPV Sodium Potassium Chloride Carbon Dioxide Anion Gap BUN Creatinine Est GFR (CKD-EPI)AfAm Est GFR (CKD-EPI)NonAf Random Glucose Calcium Total Bilirubin AST ALT Alkaline Phosphatase Total Protein Albumin RPR Titer HIV 1&2 Antibody Screen Negative HIV P24 Antigen Negative cbc ordered aaox3 ambulating no acute distress Assessment: 09/24/19 11:47 withdrawals Plan: continue detox increase fluids
[2019-09-24] MEDS: METHOCARBAMOL 500 MG TABLET PO PRN (22:45)
[2019-09-24] MEDS: MELATONIN 5 MG TABLETS PO PRN (22:45)
[2019-09-24] MEDS: THIAMINE HCL 100 MG TABLET (FP) PO SCH (22:45)
[2019-09-25] MEDS ORDERED: chlordiazePOXIDE HCL 10 MG CAPSULE PO PRN
[2019-09-25] MEDS: chlordiazePOXIDE HCL 10 MG CAPSULE PO SCH ×4 (05:56→22:17)
[2019-09-25] MEDS ORDERED: METHADONE HCL 10 MG TABLET ONE (05:58)
[2019-09-25] MEDS ORDERED: METHADONE HCL 40 MG DISPERSABLE TABLET ONE (05:58)
[2019-09-25] MEDS: METHADONE 40 MG, METHADONE 20 MG PO SCH (05:59)
[2019-09-25 10:43] LABS: ALBUMIN 3.2 g/dl (3.4-5.0); BILIRUBIN,TOTAL 1.2 mg/dL (0.2-1); CALCIUM 9.3 mg/dL (8.5-10.1); CREATININE 1.1 mg/dL (0.55-1.3); POTASSIUM 4.4 mmol/L (3.5-5.1); TOT PROT 7.9 g/dl (6.4-8.2)
[2019-09-25] MEDS: NICOTINE 14 MG/24 HOURS TOPICAL PATCH TD SCH (10:43)
[2019-09-25] MEDS: PRENATAL VITAMINS W/ FOLIC ACID TABLET (FP) PO SCH (10:43)
[2019-09-25] MEDS: LISINOPRIL 20 MG TABLET (FP) PO SCH (10:44)
[2019-09-25] MEDS: HYDROCHLOROTHIAZIDE 12.5 MG CAPSULE (FP) PO SCH (10:44)
--- NOTE | 2019-09-25 12:06 | PN ---
S CIWA - CIWA Score Nausea/Vomitin-No Nausea/No Vomiting Muscle Tremors: 3 Anxiety: 2 Agitation: 2 Paroxysmal Sweats: 1-Minimal Palms Moist Orientation: 0-Oriented Tacttile Disturbances: 0-None Auditory Disturbances: 0-None Visual Disturbances: 0-None Headache: 0-None Present CIWA-Ar Total Score: 8 BHS Progress Note (SOAP) Subjective: feeling much better sweats Objective: 09/25/19 12:05 Vital Signs Temperature 98.1 F 09/25/19 09:17 Pulse Rate 79 09/25/19 09:17 Respiratory Rate 18 09/25/19 09:17 Blood Pressure 142/92 09/25/19 09:17 O2 Sat by Pulse Oximetry (%) Laboratory Tests 09/22/19 09/22/19 09/22/19 12:30 12:30 12:30 WBC 3.9 L RBC 4.01 Hgb 12.3 Hct 37.8 MCV 94.3 MCH 30.7 MCHC 32.6 RDW 15.2 Plt Count 92 L D MPV 10.8 Sodium 140 Potassium 4.0 Chloride 104 Carbon Dioxide 28 Anion Gap 8 BUN 10.3 Creatinine 0.9 Est GFR (CKD-EPI)AfAm 106.46 Est GFR (CKD-EPI)NonAf 91.86 Random Glucose 134 H Calcium 8.6 Total Bilirubin 1.2 H AST 256 H ALT 113 H Alkaline Phosphatase 123 H Total Protein 8.4 H Albumin 3.5 RPR Titer Nonreactive HIV 1&2 Antibody Screen HIV P24 Antigen 09/22/19 09/25/19 12:50 07:10 WBC RBC Hgb Hct MCV MCH MCHC RDW Plt Count MPV Sodium 135 L Potassium 4.4 Chloride 101 Carbon Dioxide 30 Anion Gap 5 L BUN 18.0 Creatinine 1.1 Est GFR (CKD-EPI)AfAm 83.53 Est GFR (CKD-EPI)NonAf 72.07 Random Glucose 183 H Calcium 9.3 Total Bilirubin 1.2 H AST 248 H ALT 146 H Alkaline Phosphatase 107 Total Protein 7.9 Albumin 3.2 L RPR Titer HIV 1&2 Antibody Screen Negative HIV P24 Antigen Negative ast/alt minimally improving encouraged fluids aaox3 ambulating no acute distress Assessment: 09/25/19 12:06 withdrawals Plan: continue detox increase fluids
[2019-09-25] MEDS: THIAMINE HCL 100 MG TABLET (FP) PO SCH (22:17)
[2019-09-25] MEDS: METHOCARBAMOL 500 MG TABLET PO PRN (22:18)
[2019-09-25] MEDS: MELATONIN 5 MG TABLETS PO PRN (22:18)
[2019-09-26] MEDS ORDERED: METHADONE HCL 10 MG TABLET ONE (05:03)
[2019-09-26] MEDS ORDERED: METHADONE HCL 40 MG DISPERSABLE TABLET ONE (05:04)
[2019-09-26] MEDS: METHADONE 40 MG, METHADONE 20 MG PO SCH (05:25)
[2019-09-26] MEDS: chlordiazePOXIDE HCL 10 MG CAPSULE PO SCH ×2 (05:25→17:36)
[2019-09-26] MEDS: PRENATAL VITAMINS W/ FOLIC ACID TABLET (FP) PO SCH (10:11)
[2019-09-26] MEDS: HYDROCHLOROTHIAZIDE 12.5 MG CAPSULE (FP) PO SCH (10:11)
[2019-09-26] MEDS: LISINOPRIL 20 MG TABLET (FP) PO SCH (10:11)
[2019-09-26] MEDS: NICOTINE 14 MG/24 HOURS TOPICAL PATCH TD SCH (10:12)
--- NOTE | 2019-09-26 11:28 | PN ---
S CIWA - CIWA Score Nausea/Vomitin-No Nausea/No Vomiting Muscle Tremors: 2 Anxiety: 1-Mildly Anxious Agitation: 0-Normal Activity Paroxysmal Sweats: 1-Minimal Palms Moist Orientation: 0-Oriented Tacttile Disturbances: 0-None Auditory Disturbances: 0-None Visual Disturbances: 0-None Headache: 0-None Present CIWA-Ar Total Score: 4 BHS Progress Note (SOAP) Subjective: little sweats mild anxiety Objective: 09/26/19 11:27 Vital Signs Temperature 97.7 F 09/26/19 09:26 Pulse Rate 76 09/26/19 09:26 Respiratory Rate 18 09/26/19 09:26 Blood Pressure 140/82 09/26/19 09:26 O2 Sat by Pulse Oximetry (%) aaox3 ambulating no acute distress Assessment: 09/26/19 11:28 mild withdrawals Plan: continue detox d/c at 7am as per pt request. he wants to get to his [facility] before they close at 10am
[2019-09-26] MEDS: THIAMINE HCL 100 MG TABLET (FP) PO SCH (22:19)
[2019-09-26] MEDS: MELATONIN 5 MG TABLETS PO PRN (22:19)
[2019-09-26] MEDS: METHOCARBAMOL 500 MG TABLET PO PRN (22:20)
[2019-09-27] MEDS ORDERED: METHADONE HCL 10 MG TABLET ONE (04:23)
[2019-09-27] MEDS ORDERED: METHADONE HCL 40 MG DISPERSABLE TABLET ONE (04:23)
[2019-09-27] MEDS ORDERED: chlordiazePOXIDE HCL 10 MG CAPSULE PO ONE (05:00)
[2019-09-27] MEDS: METHADONE 40 MG, METHADONE 20 MG PO SCH (05:33)
[2019-09-27 06:20] VITALS: BP 165/81; PULSE 62; TEMP 97.2
--- NOTE | 2019-09-27 18:46 | DS ---
[facility] Detox Discharge Summary Admission Date: 09/22/19 Discharge Date: 09/27/19 - History Present History: Alcohol Dependence, Opioid Dependence, MMTP Additional Comments: PATIENT LEFT DETOX UNIT EARLY IN AM PRIOR TO TIME OF ARRIVAL OF [employer]OR [employer]S ONTO DETOX UNIT. THUS, PRE-DISCHARGE MEDICAL ASSESSMENT UNABLE TO BE DONE. PER CORK MOLDER Wilfrid CRATER, PATIENT WILL RETURN TO [facility] ([place], [place]) AND WILL ATTEND LOCAL OUTPATIENT AA/NA MEETINGS. Pertinent Past History: HTN, Hep C, MMTP, Nicotine Dependence, History of Positive PPD. - Physical Exam Results Vital Signs: Vital Signs Temperature 97.2 F L 09/27/19 06:19 Pulse Rate 62 09/27/19 06:19 Respiratory Rate 18 09/27/19 06:19 Blood Pressure 165/81 09/27/19 06:19 O2 Sat by Pulse Oximetry (%) Pertinent Admission Physical Exam Findings: WITHDRAWAL SYMPTOMS. Laboratory Tests 09/22/19 09/22/19 09/22/19 12:30 12:30 12:30 WBC 3.9 L RBC 4.01 Hgb 12.3 Hct 37.8 MCV 94.3 MCH 30.7 MCHC 32.6 RDW 15.2 Plt Count 92 L D MPV 10.8 Sodium 140 Potassium 4.0 Chloride 104 Carbon Dioxide 28 Anion Gap 8 BUN 10.3 Creatinine 0.9 Est GFR (CKD-EPI)AfAm 106.46 Est GFR (CKD-EPI)NonAf 91.86 Random Glucose 134 H Calcium 8.6 Total Bilirubin 1.2 H AST 256 H ALT 113 H Alkaline Phosphatase 123 H Total Protein 8.4 H Albumin 3.5 RPR Titer Nonreactive HIV 1&2 Antibody Screen HIV P24 Antigen 09/22/19 09/25/19 12:50 07:10 WBC RBC Hgb Hct MCV MCH MCHC RDW Plt Count MPV Sodium 135 L Potassium 4.4 Chloride 101 Carbon Dioxide 30 Anion Gap 5 L BUN 18.0 Creatinine 1.1 Est GFR (CKD-EPI)AfAm 83.53 Est GFR (CKD-EPI)NonAf 72.07 Random Glucose 183 H Calcium 9.3 Total Bilirubin 1.2 H AST 248 H ALT 146 H Alkaline Phosphatase 107 Total Protein 7.9 Albumin 3.2 L RPR Titer HIV 1&2 Antibody Screen Negative HIV P24 Antigen Negative LABS NOTED. - Treatment Hospital Course: Detox Protocol Followed, Detoxed Safely, Responded well, Discharged Condition Good Patient has Accepted a Rehab Referral to: PATIENT RETURNING TO PREVIOUS [facility] ([place], [place]). - Medication Discharge Medications: Ambulatory Orders Lisinopril 20 mg PO DAILY 09/22/19 - Diagnosis (1) Alcohol dependence with uncomplicated intoxication Status: Acute (2) Essential hypertension Status: Acute (3) Hepatitis C Status: Acute Qualifiers: Viral hepatitis chronicity: unspecified Hepatic coma status: without hepatic coma Qualified Code(s): B19.20 - Unspecified viral hepatitis C without hepatic coma (4) Methadone maintenance therapy patient Status: Acute (5) Nicotine dependence Status: Acute Qualifiers: Nicotine product type: cigarettes Substance use status: uncomplicated Qualified Code(s): F17.210 - Nicotine dependence, cigarettes, uncomplicated (6) Positive PPD, treated Status: Acute - AMA Did Patient Leave Against Medical Advice: No
== END 2019-09-27 07:05 | disposition home or self-care (01) | DRG 773 ==
LOC: YASAS 10:06 → Y6N 12:42
PROVIDERS: ADMIT Allergy & Immunology; ATTEND Allergy & Immunology
PROC: HZ2ZZZZ Detoxification Services for Substance Abuse Treatment (ICD-10-PCS; principal; 2019-09-22)
DX: F10.230 Alcohol dependence with withdrawal, uncomplicated (principal); F11.20 Opioid dependence, uncomplicated; F17.210 Nicotine dependence, cigarettes, uncomplicated; I10 Essential (primary) hypertension; R76.11 Nonspecific reaction to tuberculin skin test without active tuberculosis; B18.2 Chronic viral hepatitis C
CPT/HCPCS: 36415; 71046-TC-FY; 80053; 85027; 86593; 87389; J0735

== ENCOUNTER 2021-02-14 12:16 | Inpatient (IN) | payer OTHER ==
[2021-02-14 14:05] VITALS: BMI 19.6
[2021-02-14] MEDS ORDERED: ACETAMINOPHEN 325 MG TABLET (FP) PO PRN ×2 (14:05)
[2021-02-14] MEDS ORDERED: diazePAM 5 MG TABLET PO PRN (14:05)
[2021-02-14] MEDS ORDERED: NICOTINE POLACRILEX 2 MG GUM BUC PRN (14:05)
[2021-02-14] MEDS ORDERED: BISMUTH SUBSALICYLATE 262 MG/15 ML BTL PO PRN (14:05)
[2021-02-14] MEDS ORDERED: ONDANSETRON *ODT* 4 MG TABLET SL PRN (14:05)
[2021-02-14] MEDS ORDERED: MAGNESIUM CITRATE 300 ML BOTTLE PO PRN (14:05)
[2021-02-14] MEDS ORDERED: MAGNESIUM HYDROX 2400MG/30ML ORAL SUSPENSION 30 ML CUP PO PRN (14:05)
[2021-02-14] MEDS ORDERED: MENTHOL/PHENOL 1 EACH UD MM PRN (14:05)
[2021-02-14] MEDS ORDERED: IBUPROFEN 400 MG TABLET (FP) PO PRN (14:05)
[2021-02-14] MEDS ORDERED: MAG HYDROX/AL HYDROX/SIMETH 30 ML UNIT-DOSE CUP PO PRN (14:05)
[2021-02-14] MEDS ORDERED: LISINOPRIL 20 MG TABLET PO SCH (14:15)
[2021-02-14] MEDS ORDERED: ENALAPRIL MALEATE 10 MG TABLET PO SCH (15:30)
[2021-02-14] MEDS: METHOCARBAMOL 500 MG TABLET PO PRN (15:32)
[2021-02-14] MEDS: PRENATAL VITAMINS W/ FOLIC ACID TABLET (FP) PO SCH (15:35)
[2021-02-14] MEDS: diazePAM 5 MG TABLET PO SCH ×3 (15:37→22:25)
[2021-02-14 17:01] LABS: CALCIUM 8.7 mg/dL (8.5-10.1)
[2021-02-14 17:03] LABS: ALBUMIN 3.7 g/dl (3.4-5.0); BLOOD UREA NITROGEN 11.7 mg/dL (7-18)
[2021-02-14 17:04] LABS: BILIRUBIN,TOTAL 0.6 mg/dL (0.2-1); HEMATOCRIT 36.9 % (35.4-49); HEMOGLOBIN 12.4 GM/dL (11.7-16.9); MCH 30.8 pg (25.7-33.7); MCHC 33.7 g/dl (32.0-35.9); MEAN CELL VOLUME 91.6 fl (80-96); MEAN PLT VOLUME 10.7 fl (7.5-11.1); PLATELET COUNT 107 K/MM3 (134-434); RBC 4.03 M/mm3 (4.00-5.60); RDW 13.5 % (11.9-15.9); WHITE BLOOD COUNT 4.3 K/mm3 (4.0-10.0)
[2021-02-14 17:06] LABS: TOT PROT 8.6 g/dl (6.4-8.2)
[2021-02-14] MEDS: hydrOXYzine PAMOATE 25 MG CAPSULE (FP) PO SCH ×2 (17:40→22:25)
[2021-02-14] MEDS: MELATONIN 5 MG TABLETS PO SCH (22:24)
[2021-02-14] MEDS: THIAMINE HCL 100 MG TABLET (FP) PO SCH (22:25)
[2021-02-14] MEDS: ACYCLOVIR 400 MG TABLET PO SCH (23:35)
[2021-02-15] MEDS ORDERED: METHADONE HCL 10 MG TABLET ONE (04:13)
[2021-02-15] MEDS ORDERED: METHADONE HCL 40 MG DISPERSABLE TABLET ONE (04:13)
[2021-02-15] MEDS: diazePAM 5 MG TABLET PO SCH ×4 (05:32→22:14)
[2021-02-15] MEDS: METHADONE 40 MG, METHADONE 20 MG PO SCH (05:32)
[2021-02-15] MEDS: hydrOXYzine PAMOATE 25 MG CAPSULE (FP) PO SCH ×5 (05:33→22:14)
[2021-02-15] MEDS ORDERED: METHADONE HCL 10 MG TABLET PO SCH (06:00)
[2021-02-15] MEDS: ENALAPRIL MALEATE 10 MG TABLET PO SCH (10:26)
[2021-02-15] MEDS: ACYCLOVIR 400 MG TABLET PO SCH ×2 (10:27→22:12)
[2021-02-15] MEDS: PRENATAL VITAMINS W/ FOLIC ACID TABLET (FP) PO SCH (10:27)
[2021-02-15] MEDS: METHOCARBAMOL 500 MG TABLET PO PRN (10:27)
[2021-02-15] MEDS: MELATONIN 5 MG TABLETS PO SCH (22:13)
[2021-02-15] MEDS: THIAMINE HCL 100 MG TABLET (FP) PO SCH (22:14)
[2021-02-16] MEDS ORDERED: METHADONE HCL 10 MG TABLET ONE (03:44)
[2021-02-16] MEDS ORDERED: METHADONE HCL 40 MG DISPERSABLE TABLET ONE (03:45)
[2021-02-16] MEDS: METHADONE 40 MG, METHADONE 20 MG PO SCH (05:31)
[2021-02-16] MEDS: diazePAM 5 MG TABLET PO SCH ×3 (05:32→22:15)
[2021-02-16] MEDS: hydrOXYzine PAMOATE 25 MG CAPSULE (FP) PO SCH ×5 (05:32→22:15)
[2021-02-16] MEDS ORDERED: INSULIN (NOVOLOG) ASPART 100 UNITS/ML 10ML VIAL SQ ONE (07:56)
[2021-02-16] MEDS: ENALAPRIL MALEATE 10 MG TABLET PO SCH (10:24)
[2021-02-16] MEDS: PRENATAL VITAMINS W/ FOLIC ACID TABLET (FP) PO SCH (10:25)
[2021-02-16] MEDS: ACYCLOVIR 400 MG TABLET PO SCH ×2 (10:25→22:15)
[2021-02-16] MEDS ORDERED: INSULIN (NOVOLOG) ASPART 100 UNITS/ML 10ML VIAL SQ SCH ×2 (11:00)
[2021-02-16] MEDS ORDERED: Insulin (LOG) Aspart 100 UNITS/ML VIAL SQ ONE (13:30)
[2021-02-16] MEDS: INSULIN (NOVOLOG) ASPART 100 UNITS/ML 10ML VIAL SQ SCH ×2 (13:30→17:27)
[2021-02-16] MEDS ORDERED: INSULIN SLIDING SCALE (NOVOLOG) 1 VIAL SQ SCH (16:30)
[2021-02-16] MEDS: INSULIN SLIDING SCALE (NOVOLOG) 1 VIAL SQ SCH ×2 (17:27→22:16)
[2021-02-16] MEDS ORDERED: INSULIN (LEVEMIR) 100 UNITS/ML UNITS SQ SCH (22:00)
[2021-02-16] MEDS: THIAMINE HCL 100 MG TABLET (FP) PO SCH (22:15)
[2021-02-16] MEDS: MELATONIN 5 MG TABLETS PO SCH (22:16)
[2021-02-17] MEDS ORDERED: METHADONE HCL 40 MG DISPERSABLE TABLET ONE (04:47)
[2021-02-17] MEDS ORDERED: METHADONE HCL 10 MG TABLET ONE (04:47)
[2021-02-17] MEDS: METHADONE 40 MG, METHADONE 20 MG PO SCH (05:39)
[2021-02-17] MEDS: hydrOXYzine PAMOATE 25 MG CAPSULE (FP) PO SCH ×5 (05:39→21:52)
[2021-02-17] MEDS: diazePAM 5 MG TABLET PO SCH ×2 (05:41→17:59)
[2021-02-17] MEDS: INSULIN (NOVOLOG) ASPART 100 UNITS/ML 10ML VIAL SQ SCH ×3 (08:28→17:00)
[2021-02-17] MEDS: INSULIN SLIDING SCALE (NOVOLOG) 1 VIAL SQ SCH ×4 (08:29→20:31)
[2021-02-17] MEDS: PRENATAL VITAMINS W/ FOLIC ACID TABLET (FP) PO SCH (10:11)
[2021-02-17] MEDS: ENALAPRIL MALEATE 10 MG TABLET PO SCH (10:12)
[2021-02-17] MEDS: METHOCARBAMOL 500 MG TABLET PO PRN (10:14)
[2021-02-17] MEDS: ACYCLOVIR 400 MG TABLET PO SCH ×2 (10:14→21:52)
[2021-02-17] MEDS: MELATONIN 5 MG TABLETS PO SCH (21:52)
[2021-02-17] MEDS: THIAMINE HCL 100 MG TABLET (FP) PO SCH (21:52)
[2021-02-17] MEDS ORDERED: INSULIN (LEVEMIR) 100 UNITS/ML UNITS SQ SCH (22:00)
[2021-02-18] MEDS ORDERED: METHADONE HCL 40 MG DISPERSABLE TABLET ONE (04:28)
[2021-02-18] MEDS ORDERED: METHADONE HCL 10 MG TABLET ONE (04:28)
[2021-02-18] MEDS: METHADONE 40 MG, METHADONE 20 MG PO SCH (05:22)
[2021-02-18] MEDS: hydrOXYzine PAMOATE 25 MG CAPSULE (FP) PO SCH ×2 (05:22→13:54)
[2021-02-18] MEDS ORDERED: diazePAM 5 MG TABLET PO ONE (06:00)
[2021-02-18] MEDS: INSULIN (NOVOLOG) ASPART 100 UNITS/ML 10ML VIAL SQ SCH (06:49)
[2021-02-18] MEDS: INSULIN SLIDING SCALE (NOVOLOG) 1 VIAL SQ SCH (06:52)
[2021-02-18 10:07] LABS: SARS-CoV-2 NAA Not Detected (Not Detected)
[2021-02-18 11:06] VITALS: BP 112/74; PULSE 79; TEMP 97.5
[2021-02-18] MEDS: PRENATAL VITAMINS W/ FOLIC ACID TABLET (FP) PO SCH (13:54)
[2021-02-18] MEDS: ENALAPRIL MALEATE 10 MG TABLET PO SCH (13:54)
[2021-02-18] MEDS: ACYCLOVIR 400 MG TABLET PO SCH (13:55)
== END 2021-02-18 13:56 | disposition home or self-care (01) | DRG 773 ==
LOC: YASAS 12:16 → Y6N 14:52
PROVIDERS: ADMIT Allergy & Immunology; ATTEND Allergy & Immunology
PROC: HZ2ZZZZ Detoxification Services for Substance Abuse Treatment (ICD-10-PCS; principal; 2021-02-14)
DX: F10.230 Alcohol dependence with withdrawal, uncomplicated (principal); F11.23 Opioid dependence with withdrawal; F17.210 Nicotine dependence, cigarettes, uncomplicated; E11.65 Type 2 diabetes mellitus with hyperglycemia; Z79.4 Long term (current) use of insulin; I10 Essential (primary) hypertension; B18.2 Chronic viral hepatitis C; A60.01 Herpesviral infection of penis; R76.11 Nonspecific reaction to tuberculin skin test without active tuberculosis; R74.01 Elevation of levels of liver transaminase levels; Z91.14 Patient's other noncompliance with medication regimen
CPT/HCPCS: 36415; 71046-TC-FY; 80053; 82962; 83036; 85027; 86780; C9803; Q0162; U0003; U0005

== ENCOUNTER 2021-07-27 12:52 | Inpatient (IN) | payer OTHER ==
[2021-07-27 15:26] VITALS: BMI 20.9
[2021-07-27] MEDS ORDERED: MAG HYDROX/AL HYDROX/SIMETH 30 ML UNIT-DOSE CUP PO PRN (16:14)
[2021-07-27] MEDS ORDERED: MAGNESIUM HYDROX 2400MG/30ML ORAL SUSPENSION 30 ML CUP PO PRN (16:14)
[2021-07-27] MEDS ORDERED: diazePAM 5 MG TABLET PO PRN (16:14)
[2021-07-27] MEDS ORDERED: MAGNESIUM CITRATE 300 ML BOTTLE PO PRN (16:14)
[2021-07-27] MEDS ORDERED: ACETAMINOPHEN 325 MG TABLET (FP) PO PRN ×2 (16:14)
[2021-07-27] MEDS ORDERED: ONDANSETRON *ODT* 4 MG TABLET SL PRN (16:14)
[2021-07-27] MEDS ORDERED: BISMUTH SUBSALICYLATE 524 MG/30 ML PO PRN (16:14)
[2021-07-27] MEDS ORDERED: NICOTINE 10 MG CARTRIDGE (INHALER) IH PRN (16:14)
[2021-07-27] MEDS ORDERED: MENTHOL/PHENOL 1 EACH UD MM PRN (16:14)
[2021-07-27] MEDS ORDERED: METHOCARBAMOL 500 MG TABLET PO PRN (16:14)
[2021-07-27] MEDS: diazePAM 5 MG TABLET PO SCH ×2 (17:30→22:13)
[2021-07-27] MEDS: hydrOXYzine PAMOATE 25 MG CAPSULE (FP) PO SCH ×2 (17:31→22:13)
[2021-07-27] MEDS: THIAMINE HCL 100 MG TABLET (FP) PO SCH (22:13)
[2021-07-27] MEDS: MELATONIN 5 MG TABLETS PO SCH (22:13)
[2021-07-28] MEDS: diazePAM 5 MG TABLET PO SCH ×4 (05:43→22:07)
[2021-07-28] MEDS: hydrOXYzine PAMOATE 25 MG CAPSULE (FP) PO SCH ×5 (05:43→22:06)
[2021-07-28] MEDS: PRENATAL VITAMINS W/ FOLIC ACID TABLET (FP) PO SCH (10:09)
[2021-07-28] MEDS: ENALAPRIL MALEATE 10 MG TABLET PO SCH (10:09)
[2021-07-28] MEDS: IBUPROFEN 400 MG TABLET (FP) PO PRN ×2 (10:13→22:08)
[2021-07-28] MEDS: amLODIPine BESYLATE 5 MG TABLET (FP) PO SCH (11:48)
[2021-07-28 12:16] LABS: HEMATOCRIT 38.5 % (35.4-49); HEMOGLOBIN 13.3 GM/dL (11.7-16.9); MCH 31.4 pg (25.7-33.7); MCHC 34.5 g/dl (32.0-35.9); MEAN CELL VOLUME 91.1 fl (80-96); MEAN PLT VOLUME 9.4 fl (7.5-11.1); PLATELET COUNT 134 10^3/uL (134-434); RBC 4.22 M/mm3 (4.00-5.60); RDW 14.2 % (11.9-15.9); WHITE BLOOD COUNT 4.7 K/mm3 (4.0-10.0)
[2021-07-28 12:22] LABS: CALCIUM 8.9 mg/dL (8.5-10.1)
[2021-07-28 12:23] LABS: ALBUMIN 3.3 g/dl (3.4-5.0); BLOOD UREA NITROGEN 14.2 mg/dL (7-18)
[2021-07-28 12:26] LABS: CREATININE 0.9 mg/dL (0.55-1.3)
[2021-07-28 12:27] LABS: BILIRUBIN,TOTAL 0.8 mg/dL (0.2-1)
[2021-07-28 12:28] LABS: TOT PROT 8.2 g/dl (6.4-8.2)
[2021-07-28] MEDS ORDERED: methaDONE HCL 10 MG TABLET PO ONE (12:50)
[2021-07-28] MEDS ORDERED: methaDONE 40 MG, methaDONE 20 MG PO ONE (12:50)
[2021-07-28] MEDS ORDERED: methaDONE HCL 40 MG DISPERSABLE TABLET ONE (13:25)
[2021-07-28] MEDS ORDERED: methaDONE HCL 10 MG TABLET ONE (13:25)
[2021-07-28] MEDS: THIAMINE HCL 100 MG TABLET (FP) PO SCH (22:06)
[2021-07-28] MEDS: MELATONIN 5 MG TABLETS PO SCH (22:06)
[2021-07-29] MEDS ORDERED: methaDONE HCL 40 MG DISPERSABLE TABLET ONE (04:19)
[2021-07-29] MEDS ORDERED: methaDONE HCL 10 MG TABLET ONE (04:19)
[2021-07-29] MEDS: hydrOXYzine PAMOATE 25 MG CAPSULE (FP) PO SCH ×5 (05:23→22:10)
[2021-07-29] MEDS: methaDONE 40 MG, methaDONE 20 MG PO SCH (05:23)
[2021-07-29] MEDS: diazePAM 5 MG TABLET PO SCH ×3 (05:24→22:11)
[2021-07-29] MEDS: IBUPROFEN 400 MG TABLET (FP) PO PRN (05:28)
[2021-07-29] MEDS ORDERED: methaDONE HCL 10 MG TABLET PO SCH (06:00)
[2021-07-29] MEDS: amLODIPine BESYLATE 5 MG TABLET (FP) PO SCH (10:16)
[2021-07-29] MEDS: PRENATAL VITAMINS W/ FOLIC ACID TABLET (FP) PO SCH (10:16)
[2021-07-29] MEDS: ENALAPRIL MALEATE 10 MG TABLET PO SCH (10:16)
[2021-07-29] MEDS: MELATONIN 5 MG TABLETS PO SCH (22:10)
[2021-07-29] MEDS: THIAMINE HCL 100 MG TABLET (FP) PO SCH (22:10)
[2021-07-30] MEDS ORDERED: methaDONE HCL 40 MG DISPERSABLE TABLET ONE (04:07)
[2021-07-30] MEDS ORDERED: methaDONE HCL 10 MG TABLET ONE (04:07)
[2021-07-30] MEDS: methaDONE 40 MG, methaDONE 20 MG PO SCH (05:20)
[2021-07-30] MEDS: diazePAM 5 MG TABLET PO SCH ×2 (05:20→17:18)
[2021-07-30] MEDS: IBUPROFEN 400 MG TABLET (FP) PO PRN (05:22)
[2021-07-30] MEDS: hydrOXYzine PAMOATE 25 MG CAPSULE (FP) PO SCH ×5 (05:58→22:37)
[2021-07-30] MEDS: amLODIPine BESYLATE 5 MG TABLET (FP) PO SCH (10:17)
[2021-07-30] MEDS: ENALAPRIL MALEATE 10 MG TABLET PO SCH (10:17)
[2021-07-30] MEDS: PRENATAL VITAMINS W/ FOLIC ACID TABLET (FP) PO SCH (10:17)
[2021-07-30] MEDS: LIDOCAINE 5% TOPICAL PATCH TP SCH (11:00)
[2021-07-30] MEDS ORDERED: LIDOCAINE PATCH REMOVAL MC SCH (22:00)
[2021-07-30] MEDS: THIAMINE HCL 100 MG TABLET (FP) PO SCH (22:37)
[2021-07-30] MEDS: MELATONIN 5 MG TABLETS PO SCH (22:37)
[2021-07-31] MEDS ORDERED: methaDONE HCL 10 MG TABLET ONE (04:54)
[2021-07-31] MEDS ORDERED: methaDONE HCL 40 MG DISPERSABLE TABLET ONE (04:55)
[2021-07-31] MEDS: hydrOXYzine PAMOATE 25 MG CAPSULE (FP) PO SCH ×2 (05:37→09:26)
[2021-07-31] MEDS: methaDONE 40 MG, methaDONE 20 MG PO SCH (05:37)
[2021-07-31] MEDS ORDERED: diazePAM 5 MG TABLET PO ONE (06:00)
[2021-07-31] MEDS: PRENATAL VITAMINS W/ FOLIC ACID TABLET (FP) PO SCH (09:26)
[2021-07-31] MEDS: amLODIPine BESYLATE 5 MG TABLET (FP) PO SCH (09:26)
[2021-07-31] MEDS: LIDOCAINE 5% TOPICAL PATCH TP SCH (09:27)
[2021-07-31] MEDS: ENALAPRIL MALEATE 10 MG TABLET PO SCH (09:27)
[2021-07-31 10:18] VITALS: BP 131/92; PULSE 78; TEMP 98.7
== END 2021-07-31 09:40 | disposition home or self-care (01) | DRG 773 ==
LOC: YASAS 12:52 → Y6N 16:37
PROVIDERS: ADMIT Allergy & Immunology; ATTEND Allergy & Immunology
PROC: HZ2ZZZZ Detoxification Services for Substance Abuse Treatment (ICD-10-PCS; principal; 2021-07-27)
DX: F10.230 Alcohol dependence with withdrawal, uncomplicated (principal); F11.20 Opioid dependence, uncomplicated; F17.210 Nicotine dependence, cigarettes, uncomplicated; F19.280 Other psychoactive substance dependence with psychoactive substance-induced anxiety disorder; F19.24 Other psychoactive substance dependence with psychoactive substance-induced mood disorder; I10 Essential (primary) hypertension; E11.9 Type 2 diabetes mellitus without complications; B18.2 Chronic viral hepatitis C; R74.01 Elevation of levels of liver transaminase levels; R74.8 Abnormal levels of other serum enzymes; R63.4 Abnormal weight loss; Z68.20 Body mass index [BMI] 20.0-20.9, adult; Z87.438 Personal history of other diseases of male genital organs
CPT/HCPCS: 36415; 80053; 85027; 86780; 93005; 93010; C9803; U0003; U0005

== ENCOUNTER 2022-01-24 13:06 | Inpatient (IN) | payer OTHER ==
[2022-01-24] MEDS ORDERED: MAGNESIUM HYDROX 2400MG/30ML ORAL SUSPENSION 30 ML CUP PO PRN (14:26)
[2022-01-24] MEDS ORDERED: LOPERAMIDE HCL 2 MG CAPSULE PO PRN (14:26)
[2022-01-24] MEDS ORDERED: DICYCLOMINE HCL 10 MG CAPSULE PO PRN (14:26)
[2022-01-24] MEDS ORDERED: IBUPROFEN 400 MG TABLET (FP) PO PRN (14:26)
[2022-01-24] MEDS ORDERED: NICOTINE 10 MG CARTRIDGE (INHALER) IH PRN (14:26)
[2022-01-24] MEDS ORDERED: MAG HYDROX/AL HYDROX/SIMETH 30 ML UNIT-DOSE CUP PO PRN (14:26)
[2022-01-24] MEDS ORDERED: ONDANSETRON *ODT* 4 MG TABLET SL PRN (14:26)
[2022-01-24] MEDS ORDERED: MAGNESIUM CITRATE 300 ML BOTTLE PO PRN (14:26)
[2022-01-24] MEDS ORDERED: ACETAMINOPHEN 325 MG TABLET (FP) PO PRN ×2 (14:26)
[2022-01-24] MEDS ORDERED: LORazepam 1 MG TABLET PO PRN (14:26)
[2022-01-24] MEDS ORDERED: BISMUTH SUBSALICYLATE 262 MG/15 ML BTL PO PRN (14:26)
[2022-01-24] MEDS ORDERED: BENZOCAINE/MENTHOL (CHLORASEPTIC ) LOZENGE MM PRN (14:26)
[2022-01-24] MEDS: ENALAPRIL MALEATE 10 MG TABLET PO SCH (17:56)
[2022-01-24] MEDS: hydrOXYzine PAMOATE 25 MG CAPSULE (FP) PO SCH ×2 (17:57→22:58)
[2022-01-24] MEDS: LORazepam 2 MG TABLET PO SCH ×2 (17:57→22:58)
[2022-01-24] MEDS: PRENATAL VITAMINS W/ FOLIC ACID TABLET (FP) PO SCH (19:55)
[2022-01-24] MEDS: MELATONIN 5 MG TABLETS PO SCH (22:58)
[2022-01-24] MEDS: THIAMINE HCL 100 MG TABLET (FP) PO SCH (22:58)
[2022-01-25] MEDS: hydrOXYzine PAMOATE 25 MG CAPSULE (FP) PO SCH ×5 (05:59→23:22)
[2022-01-25] MEDS: LORazepam 2 MG TABLET PO SCH ×4 (05:59→23:08)
[2022-01-25] MEDS: PRENATAL VITAMINS W/ FOLIC ACID TABLET (FP) PO SCH (10:30)
[2022-01-25] MEDS: ENALAPRIL MALEATE 10 MG TABLET PO SCH (10:31)
[2022-01-25] MEDS: METHOCARBAMOL 500 MG TABLET PO PRN ×2 (10:32→23:08)
[2022-01-25 12:20] LABS: HEMATOCRIT 43.1 % (35.4-49); HEMOGLOBIN 14.2 GM/dL (11.7-16.9); MCH 28.9 pg (25.7-33.7); MEAN CELL VOLUME 87.5 fl (80-96); MEAN PLT VOLUME 9.6 fl (7.5-11.1); PLATELET COUNT 118 10^3/uL (134-434); RBC 4.93 M/mm3 (4.00-5.60); RDW 15.8 % (11.9-15.9); WHITE BLOOD COUNT 5.5 K/mm3 (4.0-10.0)
[2022-01-25 12:27] LABS: CALCIUM 9.4 mg/dL (8.5-10.1)
[2022-01-25 12:28] LABS: ALBUMIN 3.8 g/dl (3.4-5.0); BLOOD UREA NITROGEN 15.1 mg/dL (7-18)
[2022-01-25 12:30] LABS: CREATININE 0.9 mg/dL (0.55-1.3)
[2022-01-25 12:31] LABS: TOT PROT 8.6 g/dl (6.4-8.2)
[2022-01-25 12:33] LABS: BILIRUBIN,TOTAL 1.4 mg/dL (0.2-1)
[2022-01-25] MEDS ORDERED: cloNIDine HCL 0.1 MG TABLET PO ONE (19:03)
[2022-01-25] MEDS ORDERED: methaDONE HCL 10 MG TABLET PO ONE (19:06)
[2022-01-25] MEDS: MELATONIN 5 MG TABLETS PO SCH (23:08)
[2022-01-25] MEDS: THIAMINE HCL 100 MG TABLET (FP) PO SCH (23:08)
[2022-01-26] MEDS: LORazepam 1 MG TABLET PO SCH ×4 (04:53→23:07)
[2022-01-26] MEDS: METHOCARBAMOL 500 MG TABLET PO PRN (04:58)
[2022-01-26] MEDS ORDERED: cloNIDine HCL 0.1 MG TABLET PO ONE ×2 (08:00→23:50)
[2022-01-26] MEDS ORDERED: methaDONE HCL 10 MG TABLET PO ONE (10:38)
[2022-01-26] MEDS: PRENATAL VITAMINS W/ FOLIC ACID TABLET (FP) PO SCH (11:06)
[2022-01-26] MEDS: ENALAPRIL MALEATE 10 MG TABLET PO SCH (11:07)
[2022-01-26] MEDS ORDERED: methaDONE 40 MG, methaDONE 20 MG PO ONE (11:25)
[2022-01-26 18:30] VITALS: BMI 19.6
[2022-01-26] MEDS: THIAMINE HCL 100 MG TABLET (FP) PO SCH (22:56)
[2022-01-26] MEDS: MELATONIN 5 MG TABLETS PO SCH (23:07)
[2022-01-27] MEDS ORDERED: LORazepam 0.5 MG TABLET PO PRN
[2022-01-27] MEDS ORDERED: methaDONE HCL 10 MG TABLET ONE (04:22)
[2022-01-27] MEDS ORDERED: methaDONE HCL 40 MG DISPERSABLE TABLET ONE (04:23)
[2022-01-27] MEDS: LORazepam 0.5 MG TABLET PO SCH ×3 (05:49→18:23)
[2022-01-27] MEDS ORDERED: methaDONE HCL 10 MG TABLET PO SCH (06:00)
[2022-01-27] MEDS ORDERED: methaDONE 40 MG, methaDONE 20 MG PO SCH (06:00)
[2022-01-27 07:01] VITALS: TEMP 98
[2022-01-27 07:02] VITALS: BP 157/99; PULSE 76
[2022-01-27] MEDS: PRENATAL VITAMINS W/ FOLIC ACID TABLET (FP) PO SCH (11:19)
[2022-01-27] MEDS: ENALAPRIL MALEATE 10 MG TABLET PO SCH (11:20)
[2022-01-28] MEDS ORDERED: LORazepam 0.5 MG TABLET PO ONE (05:00)
== END 2022-01-27 23:13 | disposition short-term general hospital (02) | DRG 773 ==
LOC: YASAS 13:06 → Y6N 16:50
PROVIDERS: ADMIT Allergy & Immunology; ATTEND Allergy & Immunology
PROC: HZ2ZZZZ Detoxification Services for Substance Abuse Treatment (ICD-10-PCS; principal; 2022-01-24)
DX: F10.230 Alcohol dependence with withdrawal, uncomplicated (principal); F11.20 Opioid dependence, uncomplicated; F17.210 Nicotine dependence, cigarettes, uncomplicated; B19.20 Unspecified viral hepatitis C without hepatic coma; I10 Essential (primary) hypertension; E11.9 Type 2 diabetes mellitus without complications; Z79.84 Long term (current) use of oral hypoglycemic drugs; R56.9 Unspecified convulsions; S09.90XA Unspecified injury of head, initial encounter; W18.39XA Other fall on same level, initial encounter; Y92.238 Other place in hospital as the place of occurrence of the external cause; Z91.14 Patient's other noncompliance with medication regimen
CPT/HCPCS: 36415; 80053; 82962; 85027; 86780; 93005; 93010; C9803-CS; J0735; Q0162; U0003; U0005

== ENCOUNTER 2022-01-26 11:04 | Emergency (ER) | payer OTHER ==
[2022-01-26 11:10] VITALS: TEMP 97.4; BMI 21.0
[2022-01-26 13:41] LABS: BASO % 0.3 % (0-2.0); HEMATOCRIT 49.9 % (35.4-49); HEMOGLOBIN 16.6 GM/dL (11.7-16.9); LYMPH % 25.7 % (8-40); MCH 28.9 pg (25.7-33.7); MCHC 33.3 g/dl (32.0-35.9); MEAN CELL VOLUME 86.7 fl (80-96); MEAN PLT VOLUME 9.7 fl (7.5-11.1); MONO % 5.6 % (3.8-10.2); NEUT % 68.4 % (42.8-82.8); PLATELET COUNT 132 10^3/uL (134-434); RBC 5.76 M/mm3 (4.00-5.60); RDW 15.4 % (11.9-15.9); WHITE BLOOD COUNT 6.5 K/mm3 (4.0-10.0)
[2022-01-26 13:48] LABS: ALBUMIN 4.4 g/dl (3.4-5.0); BLOOD UREA NITROGEN 24.3 mg/dL (7-18); CALCIUM 10.1 mg/dL (8.5-10.1)
[2022-01-26 13:50] LABS: MAGNESIUM 1.8 mg/dL (1.8-2.4)
[2022-01-26 13:53] LABS: BILIRUBIN,TOTAL 1.3 mg/dL (0.2-1); TOT PROT 10.2 g/dl (6.4-8.2)
[2022-01-26 13:56] LABS: CREATININE 1.3 mg/dL (0.55-1.3)
[2022-01-26 15:05] VITALS: BP 140/90; PULSE 80
[2022-01-26] MEDS ORDERED: LORazepam 2 MG TABLET PO ONE (16:18)
[2022-01-26] MEDS ORDERED: LORazepam 1 MG TABLET ONE (16:37)
== END 2022-01-26 18:41 ==
LOC: JER 11:04
DX: R56.9 Unspecified convulsions (principal)
CPT/HCPCS: 36415; 70450-TC; 71045-TC-FY; 72125-TC; 80053; 83735; 84100; 85025; 93005; 93010; 99285-25

== ENCOUNTER 2022-01-27 07:28 | Inpatient (IN) | payer OTHER ==
[~2022-01-27 07:28] MED LIST: LORazepam 0.5 MG TABLET PO PRN
[2022-01-27] MEDS ORDERED: SODIUM CHLORIDE 0.9% 500 ML INFUS.BAG IV ONE ×2 (08:01→15:28)
[2022-01-27 08:45] LABS: BASO % 0.4 % (0-2.0); EOS % 0.1 % (0-4.5); HEMATOCRIT 47.9 % (35.4-49); HEMOGLOBIN 16.5 GM/dL (11.7-16.9); LYMPH % 25.1 % (8-40); MCH 29.3 pg (25.7-33.7); MCHC 34.4 g/dl (32.0-35.9); MEAN CELL VOLUME 85.4 fl (80-96); MONO % 4.1 % (3.8-10.2); NEUT % 70.3 % (42.8-82.8); PLATELET COUNT 144 10^3/uL (134-434); RBC 5.61 M/mm3 (4.00-5.60); RDW 15.6 % (11.9-15.9); WHITE BLOOD COUNT 8.1 K/mm3 (4.0-10.0)
[2022-01-27 08:58] LABS: CALCIUM 10.2 mg/dL (8.5-10.1)
[2022-01-27 09:00] LABS: ALBUMIN 4.3 g/dl (3.4-5.0); BLOOD UREA NITROGEN 39.9 mg/dL (7-18)
[2022-01-27 09:02] LABS: CREATININE 1.3 mg/dL (0.55-1.3)
[2022-01-27 09:04] LABS: BILIRUBIN,TOTAL 1.2 mg/dL (0.2-1); TOT PROT 9.8 g/dl (6.4-8.2)
[2022-01-27] MEDS ORDERED: SODIUM CHLORIDE 1,000 ML IV SCH (14:00)
[2022-01-27] MEDS: LORazepam 0.5 MG TABLET PO SCH ×2 (15:00→19:04)
[2022-01-27] MEDS ORDERED: HEPARIN NA (PORCINE) 5,000 UNITS/ML 1ML VIAL ONE (15:41)
[2022-01-27] MEDS ORDERED: LORazepam 0.5 MG TABLET ONE ×2 (15:41→18:09)
[2022-01-27] MEDS: HEPARIN NA (PORCINE) 5,000 UNITS/ML 1ML VIAL SQ SCH ×2 (15:54→22:33)
[2022-01-27] MEDS: INSULIN SLIDING SCALE (NOVOLOG) 1 VIAL SQ SCH ×2 (18:16→22:27)
[2022-01-27 19:04] LABS: URINE APPEARANCE CLEAR; URINE BILIRUBIN NEGATIVE (NEGATIVE); URINE COLOR YELLOW; URINE GLUCOSE (UA) NEGATIVE (NEGATIVE); URINE KETONE NEGATIVE (NEGATIVE); URINE LEUK ESTERASE NEGATIVE (NEGATIVE); URINE NITRITE NEGATIVE (NEGATIVE); URINE PROTEIN NEGATIVE (NEGATIVE)
[2022-01-27] MEDS ORDERED: amLODIPine BESYLATE 10 MG TABLET (FP) PO ONE (22:55)
[2022-01-27 23:59] VITALS: BMI 19.3
[2022-01-28] MEDS: LORazepam 0.5 MG TABLET PO SCH ×2 (00:11→06:30)
[2022-01-28] MEDS ORDERED: methaDONE HCL 10 MG TABLET (FOR DETOX USE ONLY) PO SCH (06:00)
[2022-01-28] MEDS: HEPARIN NA (PORCINE) 5,000 UNITS/ML 1ML VIAL SQ SCH ×3 (06:30→22:13)
[2022-01-28] MEDS: INSULIN SLIDING SCALE (NOVOLOG) 1 VIAL SQ SCH ×4 (06:31→22:11)
[2022-01-28] MEDS ORDERED: LORazepam 0.5 MG TABLET PO ONE ×2 (07:01)
[2022-01-28] MEDS ORDERED: methaDONE HCL 40 MG DISPERSABLE TABLET PO SCH ×2 (10:00)
[2022-01-28] MEDS: THIAMINE HCL 100 MG TABLET (FP) PO SCH (10:49)
[2022-01-28] MEDS: FOLIC ACID 1 MG TABLET (FP) PO SCH (10:49)
[2022-01-28] MEDS: SODIUM CHLORIDE 1,000 ML IV SCH (10:49)
[2022-01-28] MEDS: NICOTINE 14 MG/24 HOURS TOPICAL PATCH TD SCH (10:49)
[2022-01-28] MEDS: ENALAPRIL MALEATE 10 MG TABLET PO SCH (10:49)
[2022-01-28 11:22] LABS: HEMOGLOBIN 15.2 GM/dL (11.7-16.9); MCH 28.9 pg (25.7-33.7); MCHC 33.7 g/dl (32.0-35.9); MEAN CELL VOLUME 85.8 fl (80-96); MEAN PLT VOLUME 9.5 fl (7.5-11.1); PLATELET COUNT 121 10^3/uL (134-434); RBC 5.25 M/mm3 (4.00-5.60); RDW 15.6 % (11.9-15.9); WHITE BLOOD COUNT 5.4 K/mm3 (4.0-10.0)
[2022-01-28] MEDS ORDERED: methaDONE HCL 40 MG DISPERSABLE TABLET ONE (11:22)
[2022-01-28] MEDS ORDERED: methaDONE HCL 10 MG TABLET ONE (11:23)
[2022-01-28] MEDS: methaDONE 40 MG, methaDONE 20 MG PO SCH (11:27)
[2022-01-28 11:46] LABS: ALBUMIN 3.6 g/dl (3.4-5.0); CALCIUM 9.5 mg/dL (8.5-10.1)
[2022-01-28 11:47] LABS: BLOOD UREA NITROGEN 28.1 mg/dL (7-18)
[2022-01-28 11:51] LABS: BILIRUBIN,TOTAL 1.3 mg/dL (0.2-1); TOT PROT 8.7 g/dl (6.4-8.2)
[2022-01-28] MEDS: amLODIPine BESYLATE 10 MG TABLET (FP) PO SCH (12:56)
[2022-01-29] MEDS ORDERED: MELATONIN 5 MG TABLETS PO ONE (04:05)
[2022-01-29] MEDS ORDERED: methaDONE HCL 40 MG DISPERSABLE TABLET ONE (05:37)
[2022-01-29] MEDS ORDERED: methaDONE HCL 10 MG TABLET ONE (05:38)
[2022-01-29] MEDS: MELATONIN 5 MG TABLETS PO SCH ×2 (05:44→21:32)
[2022-01-29] MEDS: methaDONE 40 MG, methaDONE 20 MG PO SCH (05:47)
[2022-01-29] MEDS: HEPARIN NA (PORCINE) 5,000 UNITS/ML 1ML VIAL SQ SCH ×3 (05:48→21:32)
[2022-01-29] MEDS: INSULIN SLIDING SCALE (NOVOLOG) 1 VIAL SQ SCH ×4 (06:19→21:31)
[2022-01-29] MEDS ORDERED: LORazepam 0.5 MG TABLET PO ONE (07:01)
[2022-01-29 10:30] LABS: HEMATOCRIT 43.2 % (35.4-49); HEMOGLOBIN 14.4 GM/dL (11.7-16.9); MCH 28.7 pg (25.7-33.7); MCHC 33.4 g/dl (32.0-35.9); MEAN PLT VOLUME 10.2 fl (7.5-11.1); PLATELET COUNT 120 10^3/uL (134-434); RBC 5.02 M/mm3 (4.00-5.60); RDW 15.4 % (11.9-15.9); WHITE BLOOD COUNT 4.3 K/mm3 (4.0-10.0)
[2022-01-29] MEDS: NICOTINE 14 MG/24 HOURS TOPICAL PATCH TD SCH (10:32)
[2022-01-29] MEDS: THIAMINE HCL 100 MG TABLET (FP) PO SCH (10:32)
[2022-01-29] MEDS: amLODIPine BESYLATE 10 MG TABLET (FP) PO SCH (10:32)
[2022-01-29] MEDS: ENALAPRIL MALEATE 10 MG TABLET PO SCH (10:32)
[2022-01-29] MEDS: FOLIC ACID 1 MG TABLET (FP) PO SCH (10:33)
[2022-01-29 10:46] LABS: CALCIUM 9.1 mg/dL (8.5-10.1)
[2022-01-29 10:47] LABS: ALBUMIN 3.4 g/dl (3.4-5.0); BLOOD UREA NITROGEN 23.2 mg/dL (7-18)
[2022-01-29 10:50] LABS: CREATININE 0.9 mg/dL (0.55-1.3)
[2022-01-29 10:51] LABS: BILIRUBIN,TOTAL 1.1 mg/dL (0.2-1); TOT PROT 8.1 g/dl (6.4-8.2)
[2022-01-29] MEDS: SODIUM CHLORIDE 1,000 ML IV SCH (13:13)
[2022-01-30] MEDS: SODIUM CHLORIDE 1,000 ML IV SCH ×2 (00:26→12:02)
[2022-01-30] MEDS ORDERED: methaDONE HCL 40 MG DISPERSABLE TABLET ONE (05:20)
[2022-01-30] MEDS ORDERED: methaDONE HCL 10 MG TABLET ONE (05:21)
[2022-01-30] MEDS: methaDONE 40 MG, methaDONE 20 MG PO SCH (05:44)
[2022-01-30] MEDS: HEPARIN NA (PORCINE) 5,000 UNITS/ML 1ML VIAL SQ SCH ×3 (05:44→21:19)
[2022-01-30] MEDS: INSULIN SLIDING SCALE (NOVOLOG) 1 VIAL SQ SCH ×4 (06:24→21:29)
[2022-01-30] MEDS ORDERED: ENALAPRIL MALEATE 10 MG TABLET PO SCH (10:00)
[2022-01-30] MEDS: THIAMINE HCL 100 MG TABLET (FP) PO SCH (11:01)
[2022-01-30] MEDS: NICOTINE 14 MG/24 HOURS TOPICAL PATCH TD SCH (11:01)
[2022-01-30] MEDS: FOLIC ACID 1 MG TABLET (FP) PO SCH (11:02)
[2022-01-30] MEDS: MELATONIN 5 MG TABLETS PO SCH (21:19)
[2022-01-31] MEDS ORDERED: SODIUM CHLORIDE 1,000 ML IV SCH (01:15)
[2022-01-31] MEDS ORDERED: methaDONE HCL 40 MG DISPERSABLE TABLET ONE (05:51)
[2022-01-31] MEDS ORDERED: methaDONE HCL 10 MG TABLET ONE (05:51)
[2022-01-31] MEDS: methaDONE 40 MG, methaDONE 20 MG PO SCH (05:53)
[2022-01-31] MEDS: HEPARIN NA (PORCINE) 5,000 UNITS/ML 1ML VIAL SQ SCH ×2 (05:53→13:02)
[2022-01-31] MEDS: INSULIN SLIDING SCALE (NOVOLOG) 1 VIAL SQ SCH ×2 (06:16→11:33)
[2022-01-31 09:01] LABS: HEMATOCRIT 42.8 % (35.4-49); HEMOGLOBIN 14.2 GM/dL (11.7-16.9); MCH 28.5 pg (25.7-33.7); MCHC 33.2 g/dl (32.0-35.9); MEAN CELL VOLUME 85.9 fl (80-96); MEAN PLT VOLUME 9.9 fl (7.5-11.1); PLATELET COUNT 117 10^3/uL (134-434); RBC 4.98 M/mm3 (4.00-5.60); RDW 15.1 % (11.9-15.9); WHITE BLOOD COUNT 3.8 K/mm3 (4.0-10.0)
[2022-01-31 09:20] LABS: ALBUMIN 3.4 g/dl (3.4-5.0)
[2022-01-31 09:21] LABS: BLOOD UREA NITROGEN 17.8 mg/dL (7-18); MAGNESIUM 1.7 mg/dL (1.8-2.4)
[2022-01-31 09:23] LABS: CREATININE 0.9 mg/dL (0.55-1.3); PHOSPHOROUS 3.4 mg/dL (2.5-4.9)
[2022-01-31 09:25] LABS: BILIRUBIN,TOTAL 0.8 mg/dL (0.2-1); TOT PROT 7.7 g/dl (6.4-8.2)
[2022-01-31] MEDS: THIAMINE HCL 100 MG TABLET (FP) PO SCH (09:52)
[2022-01-31] MEDS: FOLIC ACID 1 MG TABLET (FP) PO SCH (09:52)
[2022-01-31] MEDS: NICOTINE 14 MG/24 HOURS TOPICAL PATCH TD SCH (09:53)
[2022-01-31 10:20] VITALS: BP 152/94; PULSE 66; TEMP 98.2
[2022-01-31] MEDS ORDERED: MAGNESIUM SULF 50% (8.12 MEQ/2 ML-1 GM VIAL) IVPB ONE (11:01)
== END 2022-01-31 14:38 | disposition left against medical advice (07) | DRG 204 ==
LOC: JER 07:28 → JERBED 09:52 → J5S 18:27 → OBSVTOIN 01-30 08:23
PROVIDERS: ADMIT Internal Medicine; ATTEND Internal Medicine
PROC: HZ2ZZZZ Detoxification Services for Substance Abuse Treatment (ICD-10-PCS; principal; 2022-01-27)
DX: I95.1 Orthostatic hypotension (principal); K72.91 Hepatic failure, unspecified with coma; E87.1 Hypo-osmolality and hyponatremia; F11.20 Opioid dependence, uncomplicated; Z68.1 Body mass index [BMI] 19.9 or less, adult; B19.20 Unspecified viral hepatitis C without hepatic coma; E11.9 Type 2 diabetes mellitus without complications; E86.0 Dehydration; F10.239 Alcohol dependence with withdrawal, unspecified; R63.0 Anorexia; N17.9 Acute kidney failure, unspecified
CPT/HCPCS: 36415; 70450-TC; 71045-TC-FY; 72125-TC; 80053; 81003; 82962; 83735; 84100; 84484; 85025; 85027; 87086; 93005; 93010; 93306-TC; 99285-25; C9803-CS; G0378; J1644; U0003; U0005

== ENCOUNTER 2023-01-22 10:21 | Inpatient (IN) | payer OTHER ==
[2023-01-22 10:40] VITALS: BMI 20.6
[2023-01-22] MEDS ORDERED: METHOCARBAMOL 500 MG TABLET PO PRN (11:35)
[2023-01-22] MEDS ORDERED: IBUPROFEN 600 MG TABLET (FP) PO PRN (11:35)
[2023-01-22] MEDS ORDERED: ONDANSETRON *ODT* 4 MG TABLET SL PRN (11:35)
[2023-01-22] MEDS ORDERED: guaiFENesin 600 MG TABLET.ER (FP) PO PRN (11:35)
[2023-01-22] MEDS ORDERED: BENZOCAINE/MENTHOL (CHLORASEPTIC ) LOZENGE MM PRN (11:35)
[2023-01-22] MEDS ORDERED: LOPERAMIDE HCL 2 MG CAPSULE PO PRN (11:35)
[2023-01-22] MEDS ORDERED: ACETAMINOPHEN 325 MG TABLET (FP) PO PRN (11:35)
[2023-01-22] MEDS ORDERED: NICOTINE 21 MG/24 HOURS TOPICAL PATCH TD PRN (11:35)
[2023-01-22] MEDS ORDERED: POLYETHYLENE GLYCOL (HEALTHYLAX) 3350 17 GM PACKET PO PRN (11:35)
[2023-01-22] MEDS ORDERED: NALOXONE HCL 0.4 MG/ML VIAL IM PRN (11:35)
[2023-01-22] MEDS ORDERED: NICOTINE POLACRILEX 4 MG GUM BUC PRN (11:35)
[2023-01-22] MEDS ORDERED: BISMUTH SUBSALICYLATE 524 MG/30 ML PO PRN (11:35)
[2023-01-22] MEDS ORDERED: MAGNESIUM HYDROX 2400MG/30ML ORAL SUSPENSION 30 ML CUP PO PRN (11:35)
[2023-01-22] MEDS ORDERED: NALOXONE HCL (KLOXXADO) 8 MG SPRAY NS PRN (11:35)
[2023-01-22] MEDS ORDERED: MAG HYDROX/AL HYDROX/SIMETH 30 ML UNIT-DOSE CUP PO PRN (11:35)
[2023-01-22] MEDS ORDERED: BENZONATATE 200 MG CAPSULE PO PRN (11:35)
[2023-01-22] MEDS ORDERED: chlordiazePOXIDE HCL 25 MG CAPSULE PO PRN (11:35)
[2023-01-22] MEDS ORDERED: IBUPROFEN 400 MG TABLET (FP) PO PRN (11:35)
[2023-01-22] MEDS ORDERED: cloNIDine HCL 0.1 MG TABLET PO PRN (11:42)
[2023-01-22] MEDS ORDERED: cloNIDine HCL 0.1 MG TABLET ONE (12:58)
[2023-01-22 14:28] LABS: HEMOGLOBIN 13.1 GM/dL (11.7-16.9); MCH 29.3 pg (25.7-33.7); MCHC 33.6 g/dl (32.0-35.9); MEAN CELL VOLUME 87.2 fl (80-96); MEAN PLT VOLUME 9.9 fl (7.5-11.1); PLATELET COUNT 146 10^3/uL (134-434); RBC 4.48 M/mm3 (4.00-5.60); RDW 17.7 % (11.9-15.9); WHITE BLOOD COUNT 3.5 K/mm3 (4.0-10.0)
[2023-01-22 14:34] LABS: ALBUMIN 3.8 g/dl (3.4-5.0); BLOOD UREA NITROGEN 13.4 mg/dL (7-18)
[2023-01-22 14:39] LABS: BILIRUBIN,TOTAL 0.9 mg/dL (0.2-1); TOT PROT 8.4 g/dl (6.4-8.2)
[2023-01-22] MEDS: chlordiazePOXIDE HCL 25 MG CAPSULE PO SCH ×2 (17:46→22:36)
[2023-01-22] MEDS: THIAMINE HCL 100 MG TABLET (FP) PO SCH (22:36)
[2023-01-22] MEDS: MELATONIN 5 MG TABLETS PO SCH (22:36)
[2023-01-23] MEDS: methaDONE 40 MG, methaDONE 20 MG PO SCH (05:39)
[2023-01-23] MEDS: chlordiazePOXIDE HCL 25 MG CAPSULE PO SCH ×4 (05:39→22:16)
[2023-01-23] MEDS ORDERED: methaDONE HCL 10 MG TABLET PO SCH (06:00)
[2023-01-23] MEDS: ENALAPRIL MALEATE 10 MG TABLET PO SCH (10:18)
[2023-01-23] MEDS: PRENATAL VITAMINS W/ FOLIC ACID TABLET (FP) PO SCH (10:19)
[2023-01-23] MEDS: THIAMINE HCL 100 MG TABLET (FP) PO SCH (22:15)
[2023-01-23] MEDS: MELATONIN 5 MG TABLETS PO SCH (22:15)
[2023-01-24] MEDS: methaDONE 40 MG, methaDONE 20 MG PO SCH (05:38)
[2023-01-24] MEDS: chlordiazePOXIDE HCL 25 MG CAPSULE PO SCH ×4 (05:38→22:12)
[2023-01-24] MEDS: ENALAPRIL MALEATE 10 MG TABLET PO SCH (10:14)
[2023-01-24] MEDS: PRENATAL VITAMINS W/ FOLIC ACID TABLET (FP) PO SCH (10:14)
[2023-01-24] MEDS: THIAMINE HCL 100 MG TABLET (FP) PO SCH (22:11)
[2023-01-24] MEDS: MELATONIN 5 MG TABLETS PO SCH (22:11)
[2023-01-25] MEDS ORDERED: chlordiazePOXIDE HCL 10 MG CAPSULE PO PRN
[2023-01-25] MEDS: chlordiazePOXIDE HCL 10 MG CAPSULE PO SCH ×4 (05:15→22:16)
[2023-01-25] MEDS: methaDONE 40 MG, methaDONE 20 MG PO SCH (05:16)
[2023-01-25] MEDS: PRENATAL VITAMINS W/ FOLIC ACID TABLET (FP) PO SCH (10:16)
[2023-01-25] MEDS: ENALAPRIL MALEATE 10 MG TABLET PO SCH (10:16)
[2023-01-25] MEDS: THIAMINE HCL 100 MG TABLET (FP) PO SCH (22:17)
[2023-01-25] MEDS: MELATONIN 5 MG TABLETS PO SCH (22:17)
[2023-01-26] MEDS ORDERED: chlordiazePOXIDE HCL 10 MG CAPSULE PO SCH (05:00)
[2023-01-26] MEDS: methaDONE 40 MG, methaDONE 20 MG PO SCH (05:08)
[2023-01-26 09:14] VITALS: BP 135/83; PULSE 68; RESP 17; TEMP 97.4
[2023-01-26] MEDS: ENALAPRIL MALEATE 10 MG TABLET PO SCH (10:03)
[2023-01-26] MEDS: PRENATAL VITAMINS W/ FOLIC ACID TABLET (FP) PO SCH (10:03)
[2023-01-27] MEDS ORDERED: chlordiazePOXIDE HCL 10 MG CAPSULE PO ONE (05:00)
== END 2023-01-26 11:08 | disposition home or self-care (01) | DRG 773 ==
LOC: YASAS 10:21 → Y6N 12:52
PROVIDERS: ADMIT Allergy & Immunology; ATTEND Surgery
PROC: HZ2ZZZZ Detoxification Services for Substance Abuse Treatment (ICD-10-PCS; principal; 2023-01-22)
DX: F10.230 Alcohol dependence with withdrawal, uncomplicated (principal); F11.20 Opioid dependence, uncomplicated; F17.210 Nicotine dependence, cigarettes, uncomplicated; I10 Essential (primary) hypertension; E11.9 Type 2 diabetes mellitus without complications; B18.2 Chronic viral hepatitis C; R63.4 Abnormal weight loss; Z68.20 Body mass index [BMI] 20.0-20.9, adult; Z86.11 Personal history of tuberculosis
CPT/HCPCS: 36415; 71046-TC-FY; 80053; 85027; 86780; C9803-CS; U0003; U0005

== ENCOUNTER 2023-10-29 11:56 | Inpatient (IN) | payer OTHER ==
[2023-10-29 12:26] VITALS: BMI 22.0
[2023-10-29] MEDS ORDERED: NICOTINE POLACRILEX 2 MG GUM BUC PRN (13:16)
[2023-10-29] MEDS ORDERED: IBUPROFEN 600 MG TABLET (FP) PO PRN (13:16)
[2023-10-29] MEDS ORDERED: guaiFENesin 600 MG TABLET.ER (FP) PO PRN (13:16)
[2023-10-29] MEDS ORDERED: BENZOCAINE/MENTHOL (CHLORASEPTIC ) LOZENGE MM PRN (13:16)
[2023-10-29] MEDS ORDERED: NALOXONE HCL 0.4 MG/ML VIAL IM PRN (13:16)
[2023-10-29] MEDS ORDERED: MAGNESIUM HYDROX 2400MG/30ML ORAL SUSPENSION 30 ML CUP PO PRN (13:16)
[2023-10-29] MEDS ORDERED: BISMUTH SUBSALICYLATE 524 MG/30 ML PO PRN (13:16)
[2023-10-29] MEDS ORDERED: LOPERAMIDE HCL 2 MG CAPSULE PO PRN (13:16)
[2023-10-29] MEDS ORDERED: MAG HYDROX/AL HYDROX/SIMETH 30 ML UNIT-DOSE CUP PO PRN (13:16)
[2023-10-29] MEDS ORDERED: BENZONATATE 200 MG CAPSULE PO PRN (13:16)
[2023-10-29] MEDS ORDERED: IBUPROFEN 400 MG TABLET (FP) PO PRN (13:16)
[2023-10-29] MEDS ORDERED: POLYETHYLENE GLYCOL (HEALTHYLAX) 3350 17 GM PACKET PO PRN (13:16)
[2023-10-29] MEDS ORDERED: NALOXONE HCL (KLOXXADO) 8 MG SPRAY NS PRN (13:16)
[2023-10-29] MEDS ORDERED: chlordiazePOXIDE HCL 25 MG CAPSULE PO PRN (17:25)
[2023-10-29] MEDS: chlordiazePOXIDE HCL 25 MG CAPSULE PO SCH ×2 (17:32→22:19)
[2023-10-29] MEDS: THIAMINE HCL 100 MG TABLET (FP) PO SCH (22:20)
[2023-10-29] MEDS: MELATONIN 5 MG TABLETS PO SCH (22:20)
[2023-10-30] MEDS ORDERED: INSULIN ASPART SLIDING SCALE (NOVOLOG) 1 VIAL SQ ONE ×2 (04:19→05:49)
[2023-10-30] MEDS: chlordiazePOXIDE HCL 25 MG CAPSULE PO SCH ×4 (05:36→22:28)
[2023-10-30] MEDS: methaDONE HCL 10 MG TABLET PO SCH (06:54)
[2023-10-30] MEDS ORDERED: amLODIPine BESYLATE 5 MG TABLET (FP) PO SCH (10:00)
[2023-10-30] MEDS: PRENATAL VITAMINS W/ FOLIC ACID TABLET (FP) PO SCH (10:31)
[2023-10-30] MEDS: amLODIPine BESYLATE 5 MG TABLET (FP) PO SCH (10:31)
[2023-10-30] MEDS: TAMSULOSIN HCL 0.4 MG CAP PO SCH (10:32)
[2023-10-30] MEDS: NICOTINE 21 MG/24 HOURS TOPICAL PATCH TD SCH (10:34)
[2023-10-30 14:03] LABS: POTASSIUM 5.3 mmol/L (3.5-5.1)
[2023-10-30 14:05] LABS: HEMATOCRIT 36.9 % (35.4-49); MCH 27.8 pg (25.7-33.7); MCHC 32.5 g/dl (32.0-35.9); MEAN CELL VOLUME 85.7 fl (80-96); MEAN PLT VOLUME 8.7 fl (7.5-11.1); PLATELET COUNT 177 10^3/uL (134-434); RBC 4.31 M/mm3 (4.00-5.60); RDW 19.7 % (11.9-15.9); WHITE BLOOD COUNT 3.8 K/mm3 (4.0-10.0)
[2023-10-30 14:09] LABS: BLOOD UREA NITROGEN 24.2 mg/dL (7-18)
[2023-10-30 14:12] LABS: ALBUMIN 3.6 g/dl (3.4-5.0); CREATININE 1.4 mg/dL (0.55-1.3)
[2023-10-30 14:13] LABS: BILIRUBIN,TOTAL 0.4 mg/dL (0.2-1)
[2023-10-30 14:14] LABS: TOT PROT 8.6 g/dl (6.4-8.2)
[2023-10-30] MEDS: MELATONIN 5 MG TABLETS PO SCH (22:24)
[2023-10-30] MEDS: THIAMINE HCL 100 MG TABLET (FP) PO SCH (22:24)
[2023-10-31] MEDS: methaDONE HCL 10 MG TABLET PO SCH (05:37)
[2023-10-31] MEDS: chlordiazePOXIDE HCL 25 MG CAPSULE PO SCH ×4 (05:37→22:08)
[2023-10-31] MEDS: ACETAMINOPHEN 325 MG TABLET (FP) PO PRN ×2 (05:39→22:09)
[2023-10-31] MEDS: TAMSULOSIN HCL 0.4 MG CAP PO SCH (09:09)
[2023-10-31] MEDS: PRENATAL VITAMINS W/ FOLIC ACID TABLET (FP) PO SCH (10:02)
[2023-10-31] MEDS: amLODIPine BESYLATE 5 MG TABLET (FP) PO SCH (10:02)
[2023-10-31] MEDS: NICOTINE 21 MG/24 HOURS TOPICAL PATCH TD SCH (10:04)
[2023-10-31] MEDS: ONDANSETRON *ODT* 4 MG TABLET SL PRN (17:39)
[2023-10-31] MEDS: MELATONIN 5 MG TABLETS PO SCH (22:08)
[2023-10-31] MEDS: THIAMINE HCL 100 MG TABLET (FP) PO SCH (22:08)
[2023-11-01] MEDS ORDERED: chlordiazePOXIDE HCL 10 MG CAPSULE PO PRN
[2023-11-01] MEDS: chlordiazePOXIDE HCL 10 MG CAPSULE PO SCH ×4 (05:43→22:06)
[2023-11-01] MEDS: methaDONE HCL 10 MG TABLET PO SCH (05:43)
[2023-11-01] MEDS: ACETAMINOPHEN 325 MG TABLET (FP) PO PRN (05:44)
[2023-11-01] MEDS: ONDANSETRON *ODT* 4 MG TABLET SL PRN ×2 (06:45→17:51)
[2023-11-01] MEDS: TAMSULOSIN HCL 0.4 MG CAP PO SCH (09:22)
[2023-11-01] MEDS ORDERED: TRIMETHOBENZAMIDE HCL 200MG/2ML INJ IM ONE (09:30)
[2023-11-01] MEDS: NICOTINE 21 MG/24 HOURS TOPICAL PATCH TD SCH (11:55)
[2023-11-01] MEDS: amLODIPine BESYLATE 5 MG TABLET (FP) PO SCH (11:56)
[2023-11-01] MEDS: PRENATAL VITAMINS W/ FOLIC ACID TABLET (FP) PO SCH (11:56)
[2023-11-01] MEDS ORDERED: DICYCLOMINE HCL 10 MG CAPSULE PO ONE (15:20)
[2023-11-01] MEDS ORDERED: cloNIDine HCL 0.1 MG TABLET PO ONE (21:01)
[2023-11-01] MEDS: MELATONIN 5 MG TABLETS PO SCH (22:04)
[2023-11-01] MEDS: THIAMINE HCL 100 MG TABLET (FP) PO SCH (22:04)
[2023-11-02] MEDS: chlordiazePOXIDE HCL 10 MG CAPSULE PO SCH ×2 (05:56→17:24)
[2023-11-02] MEDS: methaDONE HCL 10 MG TABLET PO SCH (05:56)
[2023-11-02] MEDS: TAMSULOSIN HCL 0.4 MG CAP PO SCH (09:26)
[2023-11-02] MEDS: NICOTINE 21 MG/24 HOURS TOPICAL PATCH TD SCH (10:34)
[2023-11-02] MEDS: PRENATAL VITAMINS W/ FOLIC ACID TABLET (FP) PO SCH (10:36)
[2023-11-02] MEDS: amLODIPine BESYLATE 5 MG TABLET (FP) PO SCH (10:36)
[2023-11-02] MEDS: ACETAMINOPHEN 325 MG TABLET (FP) PO PRN (10:37)
[2023-11-02 11:58] LABS: POTASSIUM 3.9 mmol/L (3.5-5.1)
[2023-11-02 11:59] LABS: CALCIUM 10.2 mg/dL (8.5-10.1)
[2023-11-02 12:00] LABS: BLOOD UREA NITROGEN 26.4 mg/dL (7-18)
[2023-11-02 12:03] LABS: CREATININE 1.3 mg/dL (0.55-1.3)
[2023-11-02] MEDS: THIAMINE HCL 100 MG TABLET (FP) PO SCH (23:10)
[2023-11-02] MEDS: MELATONIN 5 MG TABLETS PO SCH (23:10)
[2023-11-02 23:12] VITALS: BP 128/104; PULSE 117; RESP 20; TEMP 97.3
[2023-11-03] MEDS ORDERED: chlordiazePOXIDE HCL 10 MG CAPSULE PO ONE (05:00)
[2023-11-03] MEDS: methaDONE HCL 10 MG TABLET PO SCH (06:10)
== END 2023-11-03 07:11 | disposition short-term general hospital (02) | DRG 897 ==
LOC: YASAS 11:56 → Y3N 14:01
PROVIDERS: ADMIT Allergy & Immunology; ATTEND Allergy & Immunology
PROC: HZ2ZZZZ Detoxification Services for Substance Abuse Treatment (ICD-10-PCS; principal; 2023-10-29)
DX: F10.230 Alcohol dependence with withdrawal, uncomplicated (principal); F11.20 Opioid dependence, uncomplicated; F17.210 Nicotine dependence, cigarettes, uncomplicated; F41.9 Anxiety disorder, unspecified; I10 Essential (primary) hypertension; E11.9 Type 2 diabetes mellitus without complications; N40.0 Benign prostatic hyperplasia without lower urinary tract symptoms; R55 Syncope and collapse; R79.89 Other specified abnormal findings of blood chemistry; Z86.59 Personal history of other mental and behavioral disorders
CPT/HCPCS: 36415; 80048; 80053; 80307; 82962; 84132; 85027; 86780; 87635; 87811; 93005; 93010; Q0162

== ENCOUNTER 2023-11-02 22:54 | Inpatient (IN) | payer OTHER ==
[2023-11-02 23:20] VITALS: BMI 22.0
[2023-11-03 00:43] LABS: BASO % 0.3 % (0-2.0); HEMATOCRIT 46.2 % (35.4-49); HEMOGLOBIN 15.2 GM/dL (11.7-16.9); LYMPH % 20.7 % (8-40); MCH 27.7 pg (25.7-33.7); MCHC 32.8 g/dl (32.0-35.9); MEAN CELL VOLUME 84.2 fl (80-96); MEAN PLT VOLUME 8.8 fl (7.5-11.1); MONO % 4.9 % (3.8-10.2); NEUT % 74.1 % (42.8-82.8); PLATELET COUNT 212 10^3/uL (134-434); RBC 5.49 M/mm3 (4.00-5.60); RDW 19.6 % (11.9-15.9)
[2023-11-03 00:58] LABS: POTASSIUM 5.1 mmol/L (3.5-5.1)
[2023-11-03 01:00] LABS: ALBUMIN 4.1 g/dl (3.4-5.0); BLOOD UREA NITROGEN 36.2 mg/dL (7-18); CALCIUM 10.2 mg/dL (8.5-10.1); MAGNESIUM 1.9 mg/dL (1.8-2.4)
[2023-11-03 01:04] LABS: CREATININE 1.7 mg/dL (0.55-1.3)
[2023-11-03 01:05] LABS: BILIRUBIN,TOTAL 0.6 mg/dL (0.2-1); TOT PROT 10.3 g/dl (6.4-8.2)
[2023-11-03] MEDS: SODIUM CHLORIDE 1,000 ML IV STA ×2 (01:12→08:18)
[2023-11-03] MEDS ORDERED: chlordiazePOXIDE HCL 10 MG CAPSULE PO ONE (05:00)
[2023-11-03] MEDS ORDERED: chlordiazePOXIDE HCL 25 MG CAPSULE PO PRN (06:30)
[2023-11-03] MEDS ORDERED: NALOXONE HCL 0.4 MG/ML VIAL ONE (06:58)
[2023-11-03] MEDS: NALOXONE HCL 0.4 MG/ML VIAL IVPUSH ONE (07:01)
[2023-11-03] MEDS ORDERED: chlordiazePOXIDE HCL 10 MG CAPSULE ONE (08:10)
[2023-11-03] MEDS: chlordiazePOXIDE HCL 10 MG CAPSULE PO SCH (08:18)
[2023-11-03 08:41] LABS: BASO % 0.4 % (0-2.0); HEMATOCRIT 44.1 % (35.4-49); HEMOGLOBIN 14.8 GM/dL (11.7-16.9); LYMPH % 17.6 % (8-40); MCHC 33.5 g/dl (32.0-35.9); MEAN CELL VOLUME 83.5 fl (80-96); MEAN PLT VOLUME 8.5 fl (7.5-11.1); MONO % 4.4 % (3.8-10.2); NEUT % 77.6 % (42.8-82.8); PLATELET COUNT 189 10^3/uL (134-434); RBC 5.28 M/mm3 (4.00-5.60); RDW 19.7 % (11.9-15.9); WHITE BLOOD COUNT 11.1 K/mm3 (4.0-10.0)
[2023-11-03 09:01] LABS: POTASSIUM 4.2 mmol/L (3.5-5.1)
[2023-11-03 09:04] LABS: ALBUMIN 3.9 g/dl (3.4-5.0); BLOOD UREA NITROGEN 41.9 mg/dL (7-18); CALCIUM 9.4 mg/dL (8.5-10.1); MAGNESIUM 1.9 mg/dL (1.8-2.4)
[2023-11-03 09:07] LABS: CREATININE 1.4 mg/dL (0.55-1.3); PHOSPHOROUS 4.2 mg/dL (2.5-4.9)
[2023-11-03 09:08] LABS: BILIRUBIN,TOTAL 0.5 mg/dL (0.2-1); TOT PROT 9.7 g/dl (6.4-8.2)
[2023-11-03] MEDS ORDERED: methaDONE HCL 10 MG TABLET PO SCH (10:00)
[2023-11-03] MEDS: ENOXAPARIN NA (PORCINE) 40 MG/0.4 ML DISP.SYRIN SQ SCH (11:33)
[2023-11-03] MEDS: chlordiazePOXIDE HCL 10 MG CAPSULE PO PRN (11:34)
[2023-11-03] MEDS: INSULIN (LEVEMIR) 100 UNITS/ML UNITS SQ SCH (11:38)
[2023-11-03] MEDS: POLYETHYLENE GLYCOL (HEALTHYLAX) 3350 17 GM PACKET PO SCH (11:38)
[2023-11-03] MEDS: methaDONE HCL 10 MG TABLET PO ONE (13:58)
[2023-11-03] MEDS ORDERED: METOPROLOL TARTRATE 5 MG/5 ML VIAL IVPUSH PRN (14:57)
[2023-11-03] MEDS: METOPROLOL TARTRATE 25 MG TABLET (FP) PO SCH (15:52)
[2023-11-03] MEDS ORDERED: INSULIN (NOVOLOG) ASPART 100 UNITS/ML 10ML VIAL ONE (16:00)
[2023-11-03] MEDS: INSULIN ASPART SLIDING SCALE (NOVOLOG) 1 VIAL SQ SCH (16:02)
[2023-11-03 16:10] VITALS: RESP 20
[2023-11-03] MEDS: POTASSIUM CHLORIDE 10 MEQ in SODIUM CHLORIDE 0.45% 1,000 ML IVPB SCH (21:30)
[2023-11-04] MEDS: chlordiazePOXIDE HCL 10 MG CAPSULE PO ONE (06:07)
[2023-11-04] MEDS: ACETAMINOPHEN 1000 MG/100 ML BAG IVPB ONE (06:19)
[2023-11-04 11:49] LABS: BASO % 0.3 % (0-2.0); EOS % 0.8 % (0-4.5); HEMATOCRIT 43.4 % (35.4-49); HEMOGLOBIN 14.6 GM/dL (11.7-16.9); LYMPH % 33.2 % (8-40); MCHC 33.6 g/dl (32.0-35.9); MEAN CELL VOLUME 83.5 fl (80-96); MEAN PLT VOLUME 8.5 fl (7.5-11.1); MONO % 6.5 % (3.8-10.2); NEUT % 59.2 % (42.8-82.8); PLATELET COUNT 196 10^3/uL (134-434); RDW 19.7 % (11.9-15.9); WHITE BLOOD COUNT 9.6 K/mm3 (4.0-10.0)
[2023-11-04 12:03] LABS: POTASSIUM 4.1 mmol/L (3.5-5.1)
[2023-11-04 12:04] LABS: POTASSIUM 4.2 mmol/L (3.5-5.1)
[2023-11-04 12:12] LABS: CREATININE 1.1 mg/dL (0.55-1.3)
[2023-11-04 12:14] LABS: BILIRUBIN,TOTAL 0.7 mg/dL (0.2-1); BLOOD UREA NITROGEN 34.2 mg/dL (7-18)
[2023-11-04 12:15] LABS: ALBUMIN 3.6 g/dl (3.4-5.0); CALCIUM 9.6 mg/dL (8.5-10.1)
[2023-11-04 12:20] LABS: ALBUMIN 3.7 g/dl (3.4-5.0); BLOOD UREA NITROGEN 34.2 mg/dL (7-18); CALCIUM 9.7 mg/dL (8.5-10.1); MAGNESIUM 1.9 mg/dL (1.8-2.4)
[2023-11-04 12:23] LABS: BILIRUBIN,TOTAL 0.7 mg/dL (0.2-1); CREATININE 1.1 mg/dL (0.55-1.3)
[2023-11-04 12:25] LABS: N-TERMINAL BNP 873.4 pg/ml (5-125); TOT PROT 8.9 g/dl (6.4-8.2)
[2023-11-04 13:01] LABS: HIV INTERPRETATION NEGATIVE (NEGATIVE)
[2023-11-04] MEDS: methaDONE HCL 10 MG TABLET PO ONE (14:22)
[2023-11-04] MEDS: MAGNESIUM 1GM/D5W 100ML - 100 ML IVPB IVPB ONE (14:24)
[2023-11-04 15:26] VITALS: BP 161/87; PULSE 71; TEMP 98.5
[2023-11-05] MEDS ORDERED: chlordiazePOXIDE HCL 10 MG CAPSULE PO PRN
== END 2023-11-04 19:00 | disposition left against medical advice (07) | DRG 312 ==
LOC: JER 22:54 → JERBED 11-03 05:30 → J4W 11-03 09:52
PROVIDERS: ADMIT Internal Medicine; ATTEND Internal Medicine
DX: R55 Syncope and collapse (principal); N17.9 Acute kidney failure, unspecified; F11.20 Opioid dependence, uncomplicated; E87.1 Hypo-osmolality and hyponatremia; T40.691A Poisoning by other narcotics, accidental (unintentional), initial encounter; R41.82 Altered mental status, unspecified; I10 Essential (primary) hypertension; R00.0 Tachycardia, unspecified; A60.00 Herpesviral infection of urogenital system, unspecified; F41.9 Anxiety disorder, unspecified; F10.20 Alcohol dependence, uncomplicated; E11.65 Type 2 diabetes mellitus with hyperglycemia; F19.10 Other psychoactive substance abuse, uncomplicated; R63.4 Abnormal weight loss; Z68.22 Body mass index [BMI] 22.0-22.9, adult; Y92.89 Other specified places as the place of occurrence of the external cause
CPT/HCPCS: 0241U-QW; 36415; 70450-TC; 71045-TC-FY; 74176-TC; 80053; 80061; 82550; 82553; 82962; 83036; 83735; 83880; 84100; 84439; 84443; 84484; 85025; 87389; 93005; 93010; 93880-TC; 99285-25; J0131

== ENCOUNTER 2024-03-26 12:35 | Inpatient (IN) | payer OTHER ==
[2024-03-26 13:49] VITALS: BMI 21.6
[2024-03-26] MEDS ORDERED: IBUPROFEN 400 MG TABLET (FP) PO PRN (15:01)
[2024-03-26] MEDS ORDERED: POLYETHYLENE GLYCOL (HEALTHYLAX) 3350 17 GM PACKET PO PRN (15:01)
[2024-03-26] MEDS ORDERED: BENZONATATE 200 MG CAPSULE PO PRN (15:01)
[2024-03-26] MEDS ORDERED: P-EPHED 60MG/TRIPROLIDI 2.5MG TABLET PO PRN (15:01)
[2024-03-26] MEDS ORDERED: BENZOCAINE/MENTHOL (CHLORASEPTIC ) LOZENGE MM PRN (15:01)
[2024-03-26] MEDS ORDERED: MAG HYDROX/AL HYDROX/SIMETH 30 ML UNIT-DOSE CUP PO PRN (15:01)
[2024-03-26] MEDS ORDERED: NICOTINE POLACRILEX 2 MG LOZENGE BC PRN (15:01)
[2024-03-26] MEDS ORDERED: ONDANSETRON *ODT* 4 MG TABLET SL PRN (15:01)
[2024-03-26] MEDS ORDERED: NALOXONE (NARCAN) HCL 4 MG/0.1 ML SPRAY NS PRN (15:01)
[2024-03-26] MEDS ORDERED: NALOXONE HCL 0.4 MG/ML VIAL IM PRN (15:01)
[2024-03-26] MEDS ORDERED: IBUPROFEN 600 MG TABLET (FP) PO PRN (15:01)
[2024-03-26] MEDS ORDERED: NICOTINE POLACRILEX 2 MG GUM BUC PRN (15:01)
[2024-03-26] MEDS ORDERED: LOPERAMIDE HCL 2 MG CAPSULE PO PRN (15:01)
[2024-03-26] MEDS ORDERED: MAGNESIUM HYDROX 2400MG/30ML ORAL SUSPENSION 30 ML CUP PO PRN (15:01)
[2024-03-26] MEDS ORDERED: BISMUTH SUBSALICYLATE 262 MG/15 ML BTL PO PRN (15:01)
[2024-03-26] MEDS ORDERED: guaiFENesin 600 MG TABLET.ER (FP) PO PRN (15:01)
[2024-03-26] MEDS ORDERED: diazePAM 5 MG TABLET PO PRN (15:02)
[2024-03-26] MEDS ORDERED: TRIMETHOBENZAMIDE HCL 200MG/2ML INJ IM ONE (15:08)
[2024-03-26] MEDS: TRIMETHOBENZAMIDE HCL 200MG/2ML INJ IM ONE (15:17)
[2024-03-26] MEDS: ENALAPRIL MALEATE 10 MG TABLET PO SCH (15:57)
[2024-03-26] MEDS: diazePAM 5 MG TABLET PO SCH (17:26)
[2024-03-26] MEDS: ACETAMINOPHEN 325 MG TABLET (FP) PO PRN (17:27)
[2024-03-26] MEDS: MELATONIN 5 MG TABLETS PO SCH (22:46)
[2024-03-26] MEDS: THIAMINE 100 MG TABLET PO SCH (22:46)
[2024-03-27] MEDS ORDERED: methaDONE HCL 10 MG TABLET PO SCH (09:00)
[2024-03-27] MEDS: methaDONE 40 MG, methaDONE 10 MG PO ONE (10:13)
[2024-03-27] MEDS: PRENATAL VITAMINS W/ FOLIC ACID TABLET (FP) PO SCH (10:13)
[2024-03-27 14:44] LABS: HEMATOCRIT 37.3 % (35.4-49); HEMOGLOBIN 12.4 GM/dL (11.7-16.9); MCH 28.8 pg (25.7-33.7); MCHC 33.3 g/dl (32.0-35.9); MEAN CELL VOLUME 86.5 fl (80-96); MEAN PLT VOLUME 9.3 fl (7.5-11.1); PLATELET COUNT 147 10^3/uL (134-434); RBC 4.31 M/mm3 (4.00-5.60); RDW 16.8 % (11.9-15.9); WHITE BLOOD COUNT 4.8 K/mm3 (4.0-10.0)
[2024-03-27 14:57] LABS: POTASSIUM 4.3 mmol/L (3.5-5.1)
[2024-03-27 15:13] LABS: ALBUMIN 3.5 g/dl (3.4-5.0)
[2024-03-27 15:14] LABS: BLOOD UREA NITROGEN 24.5 mg/dL (7-18)
[2024-03-27 15:16] LABS: CREATININE 1.2 mg/dL (0.55-1.3)
[2024-03-27 15:18] LABS: BILIRUBIN,TOTAL 0.7 mg/dL (0.2-1)
[2024-03-27 15:20] LABS: TOT PROT 7.5 g/dl (6.4-8.2)
[2024-03-27] MEDS: cloNIDine HCL 0.1 MG TABLET PO PRN (22:08)
[2024-03-28] MEDS: methaDONE 40 MG, methaDONE 10 MG PO SCH (05:56)
[2024-03-28] MEDS: diazePAM 5 MG TABLET PO SCH (05:56)
[2024-03-29] MEDS: diazePAM 5 MG TABLET PO SCH (05:45)
[2024-03-29 13:11] VITALS: BP 103/77; PULSE 74; RESP 18; TEMP 97.3
[2024-03-30] MEDS ORDERED: diazePAM 5 MG TABLET PO ONE (06:00)
== END 2024-03-29 13:00 | disposition home or self-care (01) | DRG 897 ==
LOC: YASAS 12:35 → Y3N 15:32
PROVIDERS: ADMIT Allergy & Immunology; ATTEND Surgery
PROC: HZ2ZZZZ Detoxification Services for Substance Abuse Treatment (ICD-10-PCS; principal; 2024-03-26)
DX: F10.230 Alcohol dependence with withdrawal, uncomplicated (principal); F11.20 Opioid dependence, uncomplicated; F17.210 Nicotine dependence, cigarettes, uncomplicated; F41.9 Anxiety disorder, unspecified; I10 Essential (primary) hypertension; E11.9 Type 2 diabetes mellitus without complications; B18.2 Chronic viral hepatitis C; R76.11 Nonspecific reaction to tuberculin skin test without active tuberculosis; Z89.421 Acquired absence of other right toe(s)
CPT/HCPCS: 36415; 80053; 80305; 80307; 85027; 86780

== ENCOUNTER 2024-07-21 11:56 | Inpatient (IN) | payer OTHER ==
[2024-07-21 12:26] VITALS: BMI 23.7
[2024-07-21] MEDS ORDERED: POLYETHYLENE GLYCOL (HEALTHYLAX) 3350 17 GM PACKET PO PRN (13:40)
[2024-07-21] MEDS ORDERED: guaiFENesin 600 MG TABLET.ER (FP) PO PRN (13:40)
[2024-07-21] MEDS ORDERED: BENZOCAINE/MENTHOL (CHLORASEPTIC ) LOZENGE MM PRN (13:40)
[2024-07-21] MEDS ORDERED: MAG HYDROX/AL HYDROX/SIMETH 30 ML UNIT-DOSE CUP PO PRN (13:40)
[2024-07-21] MEDS ORDERED: MAGNESIUM HYDROX 2400MG/30ML ORAL SUSPENSION 30 ML CUP PO PRN (13:40)
[2024-07-21] MEDS ORDERED: diazePAM 5 MG TABLET PO PRN (13:40)
[2024-07-21] MEDS ORDERED: ONDANSETRON *ODT* 4 MG TABLET SL PRN (13:40)
[2024-07-21] MEDS ORDERED: LOPERAMIDE HCL 2 MG CAPSULE PO PRN (13:40)
[2024-07-21] MEDS ORDERED: NICOTINE POLACRILEX 4 MG GUM BUC PRN (13:40)
[2024-07-21] MEDS ORDERED: ACETAMINOPHEN 325 MG TABLET (FP) PO PRN (13:40)
[2024-07-21] MEDS ORDERED: NALOXONE (NARCAN) HCL 4 MG/0.1 ML SPRAY NS PRN (13:40)
[2024-07-21] MEDS ORDERED: METHOCARBAMOL 500 MG TABLET PO PRN (13:40)
[2024-07-21] MEDS ORDERED: BENZONATATE 200 MG CAPSULE PO PRN (13:40)
[2024-07-21] MEDS ORDERED: DICYCLOMINE HCL 10 MG CAPSULE PO PRN (13:40)
[2024-07-21] MEDS ORDERED: hydrOXYzine PAMOATE 25 MG CAPSULE (FP) PO PRN (13:40)
[2024-07-21] MEDS ORDERED: NICOTINE POLACRILEX 4 MG LOZENGE BC PRN (13:40)
[2024-07-21] MEDS ORDERED: BISMUTH SUBSALICYLATE 524 MG/30 ML PO PRN (13:40)
[2024-07-21] MEDS ORDERED: methaDONE HCL 10 MG TABLET (FOR DETOX USE ONLY) ONE (15:19)
[2024-07-21] MEDS: NICOTINE 21 MG/24 HOURS TOPICAL PATCH TD SCH (15:44)
[2024-07-21] MEDS: methaDONE HCL 10 MG TABLET PO ONE (15:46)
[2024-07-21] MEDS: cloNIDine HCL 0.1 MG TABLET PO SCH (15:46)
[2024-07-21] MEDS: diazePAM 5 MG TABLET PO SCH (17:26)
[2024-07-21 18:04] LABS: HIV INTERPRETATION NEGATIVE (NEGATIVE)
[2024-07-21] MEDS: THIAMINE 100 MG TABLET PO SCH (22:10)
[2024-07-21] MEDS: MELATONIN 5 MG TABLETS PO SCH (22:11)
[2024-07-22] MEDS ORDERED: methaDONE HCL 10 MG TABLET PO SCH (06:00)
[2024-07-22] MEDS: PRENATAL VITAMINS W/ FOLIC ACID TABLET (FP) PO SCH (09:35)
[2024-07-22] MEDS: IBUPROFEN 600 MG TABLET (FP) PO PRN (09:39)
[2024-07-22] MEDS: ENALAPRIL MALEATE 10 MG TABLET PO SCH (09:40)
[2024-07-22] MEDS: methaDONE HCL 10 MG TABLET PO ONE (09:43)
[2024-07-22] MEDS ORDERED: PATIENT'S OWN MEDICATION (NON-FORMULARY) (Enalapril Maleate [Enalapril Maleate] 20 MG Tabl PO SCH (10:00)
[2024-07-22 10:32] LABS: POTASSIUM 4.6 mmol/L (3.5-5.1)
[2024-07-22 10:35] LABS: HEMATOCRIT 37.3 % (35.4-49); HEMOGLOBIN 12.2 GM/dL (11.7-16.9); MCH 28.4 pg (25.7-33.7); MCHC 32.8 g/dl (32.0-35.9); MEAN CELL VOLUME 86.6 fl (80-96); PLATELET COUNT 127 10^3/uL (134-434); RBC 4.31 M/mm3 (4.00-5.60); RDW 15.7 % (11.9-15.9); WHITE BLOOD COUNT 3.5 K/mm3 (4.0-10.0)
[2024-07-22 10:38] LABS: BLOOD UREA NITROGEN 21.6 mg/dL (7-18); CALCIUM 9.2 mg/dL (8.5-10.1)
[2024-07-22 10:41] LABS: CREATININE 1.4 mg/dL (0.55-1.3)
[2024-07-22 10:43] LABS: BILIRUBIN,TOTAL 0.4 mg/dL (0.2-1); TOT PROT 7.6 g/dl (6.4-8.2)
[2024-07-23] MEDS ORDERED: cloNIDine HCL 0.1 MG TABLET PO PRN
[2024-07-23] MEDS: methaDONE 40 MG, methaDONE 30 MG PO SCH (05:54)
[2024-07-23] MEDS: diazePAM 5 MG TABLET PO SCH (05:55)
[2024-07-23] MEDS ORDERED: methaDONE HCL 10 MG TABLET PO ONE (10:00)
[2024-07-24] MEDS: diazePAM 5 MG TABLET PO SCH (05:47)
[2024-07-24 06:51] VITALS: RESP 16
[2024-07-24] MEDS ORDERED: methaDONE HCL 40 MG DISPERSABLE TABLET PO ONE (10:00)
[2024-07-24] MEDS: IBUPROFEN 400 MG TABLET (FP) PO PRN (17:23)
[2024-07-24 21:34] VITALS: TEMP 97.7
[2024-07-25] MEDS: diazePAM 5 MG TABLET PO ONE (05:32)
[2024-07-25 09:29] VITALS: BP 119/71; PULSE 69
[2024-07-25] MEDS: NALOXONE (NYS OPIOID OVERDOSE PROGRAM) 4 MG/0.1 ML SPRAY NS PRN (09:30)
[2024-07-25] MEDS ORDERED: methaDONE 40 MG, methaDONE 10 MG PO ONE (10:00)
[2024-07-26] MEDS ORDERED: methaDONE 40 MG, methaDONE 20 MG PO ONE (10:00)
== END 2024-07-25 09:31 | disposition home or self-care (01) | DRG 897 ==
LOC: YASAS 11:56 → Y6N 15:44
PROVIDERS: ADMIT Allergy & Immunology; ATTEND Surgery
PROC: HZ2ZZZZ Detoxification Services for Substance Abuse Treatment (ICD-10-PCS; principal; 2024-07-21)
DX: F10.230 Alcohol dependence with withdrawal, uncomplicated (principal); F11.20 Opioid dependence, uncomplicated; F19.282 Other psychoactive substance dependence with psychoactive substance-induced sleep disorder; F13.230 Sedative, hypnotic or anxiolytic dependence with withdrawal, uncomplicated; F17.210 Nicotine dependence, cigarettes, uncomplicated; F41.9 Anxiety disorder, unspecified; F32.9 Major depressive disorder, single episode, unspecified; I10 Essential (primary) hypertension; E11.9 Type 2 diabetes mellitus without complications; Z89.421 Acquired absence of other right toe(s); Z86.11 Personal history of tuberculosis; Z86.19 Personal history of other infectious and parasitic diseases
CPT/HCPCS: 36415; 80053; 80305; 80307; 82962; 83036; 85027; 86480; 86780; 86803; 87389; 87522; 93005; 93010

== ENCOUNTER 2024-10-17 12:10 | Inpatient (IN) | payer OTHER ==
[2024-10-17 12:38] VITALS: BMI 23.7
[2024-10-17] MEDS ORDERED: P-EPHED 60MG/TRIPROLIDI 2.5MG TABLET PO PRN (12:42)
[2024-10-17] MEDS ORDERED: NICOTINE POLACRILEX 2 MG LOZENGE BC PRN (12:42)
[2024-10-17] MEDS ORDERED: BENZONATATE 200 MG CAPSULE PO PRN (12:42)
[2024-10-17] MEDS ORDERED: NALOXONE (NARCAN) HCL 4 MG/0.1 ML SPRAY NS PRN (12:42)
[2024-10-17] MEDS ORDERED: guaiFENesin 600 MG TABLET.ER (FP) PO PRN (12:42)
[2024-10-17] MEDS ORDERED: IBUPROFEN 600 MG TABLET (FP) PO PRN (12:42)
[2024-10-17] MEDS ORDERED: MAG HYDROX/AL HYDROX/SIMETH 30 ML UNIT-DOSE CUP PO PRN (12:42)
[2024-10-17] MEDS ORDERED: BISMUTH SUBSALICYLATE 524 MG/30 ML PO PRN (12:42)
[2024-10-17] MEDS ORDERED: LOPERAMIDE HCL 2 MG CAPSULE PO PRN (12:42)
[2024-10-17] MEDS ORDERED: IBUPROFEN 400 MG TABLET (FP) PO PRN (12:42)
[2024-10-17] MEDS ORDERED: BENZOCAINE/MENTHOL (CHLORASEPTIC ) LOZENGE MM PRN (12:42)
[2024-10-17] MEDS ORDERED: ONDANSETRON *ODT* 4 MG TABLET SL PRN (12:42)
[2024-10-17] MEDS ORDERED: ACETAMINOPHEN 325 MG TABLET (FP) PO PRN (12:42)
[2024-10-17] MEDS ORDERED: MAGNESIUM HYDROX 2400MG/30ML ORAL SUSPENSION 30 ML CUP PO PRN (12:42)
[2024-10-17] MEDS ORDERED: NICOTINE POLACRILEX 2 MG GUM BUC PRN (12:42)
[2024-10-17] MEDS ORDERED: amLODIPine BESYLATE 5 MG TABLET (FP) ONE (14:14)
[2024-10-17] MEDS: amLODIPine BESYLATE 5 MG TABLET (FP) PO ONE (14:16)
[2024-10-17] MEDS: diazePAM 5 MG TABLET PO SCH (17:29)
[2024-10-17] MEDS: MOXIFLOXACIN HCL 0.5% OPHTHALMIC 3 ML BOTTLE OD SCH (17:53)
[2024-10-17] MEDS: prednisoLONE ACETATE 1% OPHTH SUSP 5 ML BOTTLE OD SCH (17:53)
[2024-10-17] MEDS: diazePAM 5 MG TABLET PO PRN (19:29)
[2024-10-17] MEDS: MELATONIN 5 MG TABLETS PO SCH (22:07)
[2024-10-17] MEDS: GABAPENTIN 400 MG CAPSULE PO SCH (22:07)
[2024-10-17] MEDS: THIAMINE 100 MG TABLET PO SCH (22:07)
[2024-10-18] MEDS ORDERED: methaDONE HCL 10 MG TABLET PO SCH (06:00)
[2024-10-18] MEDS: methaDONE 40 MG, methaDONE 30 MG PO SCH (06:00)
[2024-10-18 09:24] LABS: HEMOGLOBIN 12.7 GM/dL (11.7-16.9); MCH 29.6 pg (25.7-33.7); MCHC 32.5 g/dl (32.0-35.9); MEAN PLT VOLUME 9.5 fl (7.5-11.1); PLATELET COUNT 136 10^3/uL (134-434); RBC 4.29 M/mm3 (4.00-5.60); WHITE BLOOD COUNT 5.7 K/mm3 (4.0-10.0)
[2024-10-18 09:27] LABS: CHLORIDE 105 mmol/L (98-107); POTASSIUM 4.3 mmol/L (3.5-5.1); SODIUM 139 mmol/L (136-145)
[2024-10-18] MEDS: TAMSULOSIN HCL 0.4 MG CAP PO SCH (09:29)
[2024-10-18 10:12] LABS: ALBUMIN 3.7 g/dl (3.4-5.0); CALCIUM 9.2 mg/dL (8.5-10.1)
[2024-10-18 10:13] LABS: ANION GAP 6 mmol/L (4-13); CO2 28 mmol/L (21-32); GLUCOSE,RANDOM 132 mg/dL (74-106)
[2024-10-18 10:15] LABS: SGPT/ALT 37 U/L (13-61)
[2024-10-18 10:16] LABS: CREATININE 1.2 mg/dL (0.55-1.3); SGOT/AST 47 U/L (15-37)
[2024-10-18 10:17] LABS: BILIRUBIN,TOTAL 0.7 mg/dL (0.2-1); TOT PROT 7.6 g/dl (6.4-8.2)
[2024-10-18] MEDS: PRENATAL VITAMINS W/ FOLIC ACID TABLET (FP) PO SCH (10:17)
[2024-10-18 10:18] LABS: ALK PHOS 149 U/L (45-117)
[2024-10-18] MEDS: LOSARTAN POTASSIUM 25 MG TABLET PO SCH (10:20)
[2024-10-19] MEDS: diazePAM 5 MG TABLET PO SCH (06:11)
[2024-10-19] MEDS: POLYETHYLENE GLYCOL (HEALTHYLAX) 3350 17 GM PACKET PO PRN (13:10)
[2024-10-20] MEDS: diazePAM 5 MG TABLET PO SCH (05:32)
[2024-10-20] MEDS: amLODIPine BESYLATE 10 MG TABLET (FP) PO SCH (14:52)
[2024-10-20] MEDS: MELATONIN 5 MG TABLETS PO SCH (21:20)
[2024-10-21] MEDS: diazePAM 5 MG TABLET PO ONE (06:02)
[2024-10-21] MEDS: NALOXONE (NYS OPIOID OVERDOSE PROGRAM) 4 MG/0.1 ML SPRAY NS SCH (09:00)
[2024-10-21 09:21] VITALS: BP 160/96; PULSE 74; RESP 17; TEMP 98
== END 2024-10-21 10:18 | disposition home or self-care (01) | DRG 897 ==
LOC: YASAS 12:10 → Y3N 13:50
PROVIDERS: ADMIT Allergy & Immunology; ATTEND Allergy & Immunology
PROC: HZ2ZZZZ Detoxification Services for Substance Abuse Treatment (ICD-10-PCS; principal; 2024-10-17)
DX: F10.230 Alcohol dependence with withdrawal, uncomplicated (principal); F11.20 Opioid dependence, uncomplicated; F17.210 Nicotine dependence, cigarettes, uncomplicated; F41.9 Anxiety disorder, unspecified; H40.9 Unspecified glaucoma; I10 Essential (primary) hypertension; E11.9 Type 2 diabetes mellitus without complications; N40.0 Benign prostatic hyperplasia without lower urinary tract symptoms; R76.11 Nonspecific reaction to tuberculin skin test without active tuberculosis
CPT/HCPCS: 36415; 80053; 80305; 80307; 82962; 85027; 86780

== ENCOUNTER 2024-12-17 13:22 | Inpatient (IN) | payer OTHER ==
[2024-12-17 14:01] VITALS: BMI 24.0
[2024-12-17] MEDS ORDERED: DICYCLOMINE HCL 10 MG CAPSULE PO PRN (14:25)
[2024-12-17] MEDS ORDERED: MAGNESIUM HYDROX 2400MG/30ML ORAL SUSPENSION 30 ML CUP PO PRN (14:25)
[2024-12-17] MEDS ORDERED: BENZOCAINE/MENTHOL (CHLORASEPTIC ) LOZENGE MM PRN (14:25)
[2024-12-17] MEDS ORDERED: hydrOXYzine PAMOATE 25 MG CAPSULE (FP) PO PRN (14:25)
[2024-12-17] MEDS ORDERED: BISMUTH SUBSALICYLATE 262 MG/15 ML BTL PO PRN (14:25)
[2024-12-17] MEDS ORDERED: ACETAMINOPHEN 325 MG TABLET (FP) PO PRN (14:25)
[2024-12-17] MEDS ORDERED: BENZONATATE 200 MG CAPSULE PO PRN (14:25)
[2024-12-17] MEDS ORDERED: METHOCARBAMOL 500 MG TABLET PO PRN (14:25)
[2024-12-17] MEDS ORDERED: MAG HYDROX/AL HYDROX/SIMETH 30 ML UNIT-DOSE CUP PO PRN (14:25)
[2024-12-17] MEDS ORDERED: IBUPROFEN 400 MG TABLET (FP) PO PRN (14:25)
[2024-12-17] MEDS ORDERED: LOPERAMIDE HCL 2 MG CAPSULE PO PRN (14:25)
[2024-12-17] MEDS ORDERED: IBUPROFEN 600 MG TABLET (FP) PO PRN (14:25)
[2024-12-17] MEDS ORDERED: ONDANSETRON *ODT* 4 MG TABLET SL PRN (14:25)
[2024-12-17] MEDS ORDERED: guaiFENesin 600 MG TABLET.ER (FP) PO PRN (14:25)
[2024-12-17] MEDS ORDERED: POLYETHYLENE GLYCOL (HEALTHYLAX) 3350 17 GM PACKET PO PRN (14:25)
[2024-12-17] MEDS ORDERED: NALOXONE (NARCAN) HCL 4 MG/0.1 ML SPRAY NS PRN (14:25)
[2024-12-17] MEDS ORDERED: methaDONE HCL 10 MG TABLET (FOR DETOX USE ONLY) ONE (15:29)
[2024-12-17] MEDS: PRENATAL VITAMINS W/ FOLIC ACID TABLET (FP) PO SCH (15:31)
[2024-12-17] MEDS: methaDONE HCL 10 MG TABLET PO ONE (15:31)
[2024-12-17] MEDS ORDERED: methaDONE HCL 10 MG TABLET PO PRN (16:26)
[2024-12-17] MEDS: INSULIN ASPART SLIDING SCALE (NOVOLOG) 1 VIAL SQ SCH (17:01)
[2024-12-17] MEDS: cloNIDine HCL 0.1 MG TABLET PO SCH (17:04)
[2024-12-17] MEDS: diazePAM 5 MG TABLET PO SCH (17:04)
[2024-12-17] MEDS: MELATONIN 5 MG TABLETS PO SCH (22:07)
[2024-12-17] MEDS: ACAMPROSATE CALCIUM 333 MG TABLET.DR PO SCH (22:08)
[2024-12-17] MEDS: THIAMINE 100 MG TABLET PO SCH (22:08)
[2024-12-18] MEDS ORDERED: methaDONE HCL 10 MG TABLET PO SCH (08:30)
[2024-12-18] MEDS: methaDONE 40 MG, methaDONE 30 MG PO ONE (10:10)
[2024-12-18] MEDS: NICOTINE 21 MG/24 HOURS TOPICAL PATCH TD SCH (10:13)
[2024-12-18 10:57] LABS: HEMATOCRIT 37.7 % (40.1-51.0); HEMOGLOBIN 11.7 g/dL (13.7-17.5); MEAN CELL VOLUME 93.3 fl (79.0-92.2); MEAN PLT VOLUME 11.6 fl (9.4-12.4); PLATELET COUNT # 97 x10^3/uL (163-337); RDW 14.9 % (12.2-16.4)
[2024-12-18 11:06] LABS: CHLORIDE 102 mmol/L (98-107); POTASSIUM 4.8 mmol/L (3.5-5.1); SODIUM 138 mmol/L (136-145)
[2024-12-18 11:18] LABS: ALBUMIN 3.7 g/dl (3.4-5.0); ANION GAP 4 mmol/L (4-13); CALCIUM 9.3 mg/dL (8.5-10.1); CO2 32 mmol/L (21-32)
[2024-12-18 11:19] LABS: BLOOD UREA NITROGEN 39.4 mg/dL (7-18); GLUCOSE,RANDOM 146 mg/dL (74-106)
[2024-12-18 11:21] LABS: CREATININE 1.4 mg/dL (0.55-1.3); SGOT/AST 120 U/L (15-37); SGPT/ALT 86 U/L (13-61)
[2024-12-18 11:23] LABS: BILIRUBIN,TOTAL 0.6 mg/dL (0.2-1); TOT PROT 7.4 g/dl (6.4-8.2)
[2024-12-18 11:24] LABS: ALK PHOS 147 U/L (45-117)
[2024-12-18 12:09] LABS: HIV INTERPRETATION NEGATIVE (NEGATIVE)
[2024-12-18] MEDS ORDERED: PATIENT'S OWN MEDICATION (NON-FORMULARY) (Olmesartan Medoxomil [Olmesartan Medoxomil] 5 MG PO SCH (14:15)
[2024-12-18] MEDS: ENALAPRIL MALEATE 10 MG TABLET PO SCH (14:31)
[2024-12-18] MEDS: diazePAM 5 MG TABLET PO PRN (14:32)
[2024-12-18] MEDS: LACTULOSE 20 GM/30 ML UDC (FOR ORAL USE ONLY) PO SCH (14:33)
[2024-12-18] MEDS: LOSARTAN POTASSIUM 25 MG TABLET PO SCH (15:14)
[2024-12-18] MEDS: TAMSULOSIN HCL 0.4 MG CAP PO SCH (22:22)
[2024-12-19] MEDS ORDERED: cloNIDine HCL 0.1 MG TABLET PO PRN
[2024-12-19] MEDS ORDERED: INSULIN ASPART SLIDING SCALE (NOVOLOG) 1 VIAL SQ ONE ×2 (04:23→17:06)
[2024-12-19] MEDS: diazePAM 5 MG TABLET PO SCH (05:39)
[2024-12-19] MEDS: methaDONE 40 MG, methaDONE 30 MG PO SCH (05:40)
[2024-12-19] MEDS ORDERED: methaDONE 40 MG, methaDONE 10 MG PO ONE (10:00)
[2024-12-19] MEDS: methaDONE HCL 10 MG TABLET PO ONE (10:36)
[2024-12-20] MEDS: diazePAM 5 MG TABLET PO SCH (05:32)
[2024-12-20] MEDS ORDERED: INSULIN ASPART SLIDING SCALE (NOVOLOG) 1 VIAL SQ ONE (05:36)
[2024-12-20 13:04] VITALS: RESP 16
[2024-12-21] MEDS: diazePAM 5 MG TABLET PO ONE (05:09)
[2024-12-21 09:02] VITALS: BP 122/80; PULSE 78; TEMP 97.8
[2024-12-21] MEDS: methaDONE HCL 10 MG TABLET PO ONE (09:53)
[2024-12-21] MEDS ORDERED: methaDONE 40 MG, methaDONE 20 MG PO ONE (10:00)
[2024-12-22] MEDS ORDERED: methaDONE HCL 10 MG TABLET PO ONE ×2 (10:00)
[2024-12-23] MEDS ORDERED: methaDONE HCL 10 MG TABLET PO ONE ×2 (10:00)
== END 2024-12-21 10:27 | disposition home or self-care (01) | DRG 897 ==
LOC: YASAS 13:22 → Y3N 15:29
PROVIDERS: ADMIT Allergy & Immunology; ATTEND Allergy & Immunology
PROC: HZ2ZZZZ Detoxification Services for Substance Abuse Treatment (ICD-10-PCS; principal; 2024-12-17)
DX: F11.23 Opioid dependence with withdrawal (principal); F15.20 Other stimulant dependence, uncomplicated; F13.20 Sedative, hypnotic or anxiolytic dependence, uncomplicated; F10.20 Alcohol dependence, uncomplicated; F17.210 Nicotine dependence, cigarettes, uncomplicated; F41.8 Other specified anxiety disorders; B18.2 Chronic viral hepatitis C; I10 Essential (primary) hypertension; E11.9 Type 2 diabetes mellitus without complications; R79.89 Other specified abnormal findings of blood chemistry; R76.11 Nonspecific reaction to tuberculin skin test without active tuberculosis; R74.01 Elevation of levels of liver transaminase levels; Z89.411 Acquired absence of right great toe; Z89.421 Acquired absence of other right toe(s)
CPT/HCPCS: 36415; 80053; 80305; 80307; 82140; 82962; 83036; 85027; 86780; 86803; 87389; 87522; 93005; 93010

== ENCOUNTER 2025-03-20 12:37 | Inpatient (IN) | payer OTHER ==
[2025-03-20 12:50] VITALS: BMI 23.1
[2025-03-20] MEDS ORDERED: LOPERAMIDE HCL 2 MG CAPSULE PO PRN (13:24)
[2025-03-20] MEDS ORDERED: DICYCLOMINE HCL 10 MG CAPSULE PO PRN (13:24)
[2025-03-20] MEDS ORDERED: POLYETHYLENE GLYCOL (HEALTHYLAX) 3350 17 GM PACKET PO PRN (13:24)
[2025-03-20] MEDS ORDERED: NALOXONE (NARCAN) HCL 4 MG/0.1 ML SPRAY NS PRN (13:24)
[2025-03-20] MEDS ORDERED: IBUPROFEN 400 MG TABLET (FP) PO PRN (13:24)
[2025-03-20] MEDS ORDERED: hydrOXYzine PAMOATE 25 MG CAPSULE (FP) PO PRN (13:24)
[2025-03-20] MEDS ORDERED: BENZOCAINE/MENTHOL (CHLORASEPTIC ) LOZENGE MM PRN (13:24)
[2025-03-20] MEDS ORDERED: ONDANSETRON *ODT* 4 MG TABLET SL PRN (13:24)
[2025-03-20] MEDS ORDERED: ACETAMINOPHEN 325 MG TABLET (FP) PO PRN (13:24)
[2025-03-20] MEDS ORDERED: BISMUTH SUBSALICYLATE 524 MG/30 ML PO PRN (13:24)
[2025-03-20] MEDS ORDERED: IBUPROFEN 600 MG TABLET (FP) PO PRN (13:24)
[2025-03-20] MEDS ORDERED: MAG HYDROX/AL HYDROX/SIMETH 30 ML UNIT-DOSE CUP PO PRN (13:24)
[2025-03-20] MEDS ORDERED: BENZONATATE 200 MG CAPSULE PO PRN (13:24)
[2025-03-20] MEDS ORDERED: chlordiazePOXIDE HCL 25 MG CAPSULE PO PRN (13:24)
[2025-03-20] MEDS ORDERED: guaiFENesin 600 MG TABLET.ER (FP) PO PRN (13:24)
[2025-03-20] MEDS ORDERED: MAGNESIUM HYDROX 2400MG/30ML ORAL SUSPENSION 30 ML CUP PO PRN (13:24)
[2025-03-20] MEDS: PRENATAL VITAMINS W/ FOLIC ACID TABLET (FP) PO SCH (15:54)
[2025-03-20] MEDS: NICOTINE 21 MG/24 HOURS TOPICAL PATCH TD SCH (15:54)
[2025-03-20] MEDS: INSULIN ASPART SLIDING SCALE (NOVOLOG) 1 VIAL SQ SCH (17:09)
[2025-03-20] MEDS: chlordiazePOXIDE HCL 25 MG CAPSULE PO SCH (17:10)
[2025-03-20] MEDS: METHOCARBAMOL 500 MG TABLET PO PRN (22:18)
[2025-03-20] MEDS: MELATONIN 5 MG TABLETS PO SCH (22:18)
[2025-03-20] MEDS: THIAMINE 100 MG TABLET PO SCH (22:18)
[2025-03-21 09:45] LABS: HEMATOCRIT 38.7 % (40.1-51.0); HEMOGLOBIN 12.3 g/dL (13.7-17.5); MCHC 31.8 g/dl (32.3-36.5); MEAN CELL VOLUME 95.6 fl (79.0-92.2); MEAN PLT VOLUME 13.6 fl (9.4-12.4); PLATELET COUNT 45 x10^3/uL (163-337); POTASSIUM 4.3 mmol/L (3.5-5.1); RDW 14.8 % (12.2-16.4)
[2025-03-21 09:48] LABS: ALBUMIN 3.6 g/dl (3.4-5.0); CALCIUM 9.3 mg/dL (8.5-10.1)
[2025-03-21 09:49] LABS: BLOOD UREA NITROGEN 21.1 mg/dL (7-18)
[2025-03-21 09:52] LABS: CREATININE 1.2 mg/dL (0.55-1.3)
[2025-03-21 09:53] LABS: BILIRUBIN,TOTAL 0.6 mg/dL (0.2-1); TOT PROT 7.4 g/dl (6.4-8.2)
[2025-03-21] MEDS: TAMSULOSIN HCL 0.4 MG CAP PO SCH (10:06)
[2025-03-21] MEDS: methaDONE HCL 40 MG DISPERSABLE TABLET PO SCH ×2 (10:06→10:33)
[2025-03-21] MEDS: PATIENT'S OWN MEDICATION (NON-FORMULARY) (Olmesartan Medoxomil [Benicar] 5 MG Tablet) PO SCH (11:39)
[2025-03-21] MEDS: LOSARTAN POTASSIUM 25 MG TABLET PO ONE (11:42)
[2025-03-22] MEDS: chlordiazePOXIDE HCL 25 MG CAPSULE PO SCH (05:29)
[2025-03-23] MEDS ORDERED: chlordiazePOXIDE HCL 10 MG CAPSULE PO PRN
[2025-03-23] MEDS: chlordiazePOXIDE HCL 10 MG CAPSULE PO SCH (06:07)
[2025-03-23] MEDS: methaDONE HCL 40 MG DISPERSABLE TABLET PO SCH (08:55)
[2025-03-23 12:41] VITALS: RESP 18
[2025-03-23 16:42] VITALS: BP 118/75; PULSE 63; TEMP 97.7
[2025-03-24] MEDS ORDERED: chlordiazePOXIDE HCL 10 MG CAPSULE PO SCH (05:00)
[2025-03-25] MEDS ORDERED: chlordiazePOXIDE HCL 10 MG CAPSULE PO ONE (05:00)
== END 2025-03-23 18:07 | disposition home or self-care (01) | DRG 897 ==
LOC: YASAS 12:37 → Y3N 15:36
PROVIDERS: ADMIT Allergy & Immunology; ATTEND Allergy & Immunology
PROC: HZ2ZZZZ Detoxification Services for Substance Abuse Treatment (ICD-10-PCS; principal; 2025-03-20)
DX: F10.230 Alcohol dependence with withdrawal, uncomplicated (principal); F11.20 Opioid dependence, uncomplicated; E72.20 Disorder of urea cycle metabolism, unspecified; F13.20 Sedative, hypnotic or anxiolytic dependence, uncomplicated; F17.210 Nicotine dependence, cigarettes, uncomplicated; F41.9 Anxiety disorder, unspecified; E11.9 Type 2 diabetes mellitus without complications; N40.0 Benign prostatic hyperplasia without lower urinary tract symptoms; Z89.411 Acquired absence of right great toe; Z89.421 Acquired absence of other right toe(s)
CPT/HCPCS: 36415; 71046-TC-FY; 80053; 80305; 80307; 82140; 82962; 85027; 86780; 93005; 93010

== ENCOUNTER 2025-05-19 11:38 | Inpatient (IN) | payer OTHER ==
[2025-05-19 12:00] VITALS: BMI 24.4
[2025-05-19] MEDS ORDERED: BENZOCAINE/MENTHOL (CHLORASEPTIC ) LOZENGE MM PRN (12:11)
[2025-05-19] MEDS ORDERED: guaiFENesin 600 MG TABLET.ER (FP) PO PRN (12:11)
[2025-05-19] MEDS ORDERED: NICOTINE POLACRILEX 2 MG LOZENGE BC PRN (12:11)
[2025-05-19] MEDS ORDERED: NICOTINE POLACRILEX 2 MG GUM BUC PRN (12:11)
[2025-05-19] MEDS ORDERED: LOPERAMIDE HCL 2 MG CAPSULE PO PRN (12:11)
[2025-05-19] MEDS ORDERED: MAGNESIUM HYDROX 2400MG/30ML ORAL SUSPENSION 30 ML CUP PO PRN (12:11)
[2025-05-19] MEDS ORDERED: ONDANSETRON *ODT* 4 MG TABLET SL PRN (12:11)
[2025-05-19] MEDS ORDERED: POLYETHYLENE GLYCOL (HEALTHYLAX) 3350 17 GM PACKET PO PRN (12:11)
[2025-05-19] MEDS ORDERED: BENZONATATE 200 MG CAPSULE PO PRN (12:11)
[2025-05-19] MEDS ORDERED: IBUPROFEN 600 MG TABLET (FP) PO PRN (12:11)
[2025-05-19] MEDS ORDERED: MAG HYDROX/AL HYDROX/SIMETH 30 ML UNIT-DOSE CUP PO PRN (12:11)
[2025-05-19] MEDS ORDERED: NALOXONE (NARCAN) HCL 4 MG/0.1 ML SPRAY NS PRN (12:11)
[2025-05-19] MEDS ORDERED: ACETAMINOPHEN 325 MG TABLET (FP) PO PRN (12:11)
[2025-05-19] MEDS ORDERED: IBUPROFEN 400 MG TABLET (FP) PO PRN (12:11)
[2025-05-19] MEDS: MELATONIN 5 MG TABLETS PO SCH (22:04)
[2025-05-19] MEDS: THIAMINE 100 MG TABLET PO SCH (22:04)
[2025-05-20] MEDS: TAMSULOSIN HCL 0.4 MG CAP PO SCH (07:38)
[2025-05-20 10:30] LABS: MCHC 30.7 g/dl (32.3-36.5); MEAN CELL VOLUME 96.1 fl (79.0-92.2); MEAN PLT VOLUME 11.8 fl (9.4-12.4); RDW 14.8 % (12.2-16.4)
[2025-05-20] MEDS: LOSARTAN POTASSIUM 25 MG TABLET PO SCH (10:31)
[2025-05-20] MEDS: PRENATAL VITAMINS W/ FOLIC ACID TABLET (FP) PO SCH (10:32)
[2025-05-20 12:07] LABS: ALK PHOS 98.0 U/L (40-150); CO2 28.0 mmol/L (21-32); GLUCOSE,RANDOM 118.0 mg/dL (74-106); TOT PROT 7.2 g/dl (6.4-8.2)
[2025-05-20 12:08] LABS: CREATININE 1.18 mg/dL (0.55-1.3); SGOT/AST 43.0 U/L (5-34); SGPT/ALT 23.0 U/L (0-55)
[2025-05-21] MEDS: BISMUTH SUBSALICYLATE 524 MG/30 ML PO PRN (10:27)
[2025-05-21 12:58] VITALS: RESP 18
[2025-05-21 17:10] VITALS: BP 164/100; PULSE 62; TEMP 97.7
== END 2025-05-21 18:07 | disposition home or self-care (01) | DRG 897 ==
LOC: YASAS 11:38 → Y3N 13:19
PROVIDERS: ADMIT Allergy & Immunology; ATTEND Allergy & Immunology
PROC: HZ2ZZZZ Detoxification Services for Substance Abuse Treatment (ICD-10-PCS; principal; 2025-05-19)
DX: F10.230 Alcohol dependence with withdrawal, uncomplicated (principal); F11.20 Opioid dependence, uncomplicated; F14.10 Cocaine abuse, uncomplicated; F17.210 Nicotine dependence, cigarettes, uncomplicated; H40.9 Unspecified glaucoma; I10 Essential (primary) hypertension; E11.9 Type 2 diabetes mellitus without complications; N40.0 Benign prostatic hyperplasia without lower urinary tract symptoms; R79.89 Other specified abnormal findings of blood chemistry; Z86.19 Personal history of other infectious and parasitic diseases
CPT/HCPCS: 36415; 80053; 80307; 84520; 85027; 86780